=== PATIENT | male | born 1965 | race Hispanic/Latino ===

== ENCOUNTER 2017-06-06 12:49 | Inpatient (IN) | payer OTHER ==
[2017-06-06] MEDS ORDERED: MAGNESIUM SULFATE 2GM/50ML 2 GM/50 ML BAG IV ONE (13:17)
[2017-06-06] MEDS ORDERED: PROVENTIL IH ONE (13:18)
[2017-06-06] MEDS ORDERED: ATROVENT IH ONE (13:18)
--- NOTE | 2017-06-06 13:22 | Emergency Department Report ---
HPI - General Chief Complaint: Chest Pain Time Seen by Provider: 06/06/17 13:11 - HPI HPI: This is a 51-year-old male presents to the emergency department from home with the complaint of a 3 day history of some generalized chest his comfort and shortness of breath, wheezing and dry cough. Patient says "I think it's my COPD or some kind of pneumonia." He is not oxygen independent. He is a tobacco smoker as well as occasional marijuana use. He drinks about 6 beers per week. He has not taken anything or try to anything for his symptoms prior to presentation. No recent travel or sick contacts at home. He denies any fever, nausea, vomiting, back pain, edema or diaphoresis. He does not have a primary care physician. ED Past Medical Hx - Past Medical History Hx COPD: Yes Additional medical history: pneumonia - Surgical History Additional Surgical History: Neck - Social History Smoking Status: Current Every Day Smoker Substance Use Type: Alcohol, Marijuana - Medications Home Medications: Home Medications Medication Instructions Recorded Confirmed Last Taken Type No Known Home Medications [No 11/01/15 06/06/17 Unknown History Reported Home Medications] ED Review of Systems ROS: Stated complaint: CHEST PAIN/SOB Other details as noted in HPI Comment: All other systems reviewed and negative Constitutional: no symptoms reported Eyes: denies: eye pain, eye discharge, vision change ENT: denies: ear pain, throat pain Respiratory: cough, shortness of breath, wheezing Cardiovascular: chest pain. denies: edema Gastrointestinal: denies: abdominal pain, nausea, diarrhea Genitourinary: denies: urgency, dysuria Musculoskeletal: denies: back pain, joint swelling, arthralgia Skin: denies: rash, lesions Neurological: denies: headache, weakness, paresthesias Physical Exam - Physical Exam Vital Signs: Vital Signs 06/06/17 12:56 Temperature 97.9 F Pulse Rate 99 H Respiratory 22 Rate Blood Pressure 124/90 O2 Sat by Pulse 90 Oximetry Physical Exam: GENERAL: The patient is well-developed well-nourished. HENT: Normocephalic. Atraumatic. Patient has moist mucous membranes. EYES: Extraocular motions are intact. Pupils equal reactive to light bilaterally. NECK: Supple. Trachea is midline. CHEST/LUNGS: Mild wheezing throughout the chest. Tachypnea and accessory muscle use. There is a dry cough heard during examination. There is no respiratory distress noted. HEART/CARDIOVASCULAR: Regular. There is no tachycardia. There is no gallop rub or murmur. ABDOMEN: Abdomen is soft, nontender. Patient has normal bowel sounds. There is no abdominal distention. SKIN: Skin is warm and dry. No appreciable edema. NEURO: The patient is awake, alert, and oriented. The patient is cooperative. The patient has no focal neurologic deficits. The patient has normal speech. MUSCULOSKELETAL: There is no tenderness or deformity. There is no limitation range of motion. There is no evidence of acute injury. ED Course Vital Signs 06/06/17 12:56 Temperature 97.9 F Pulse Rate 99 H Respiratory 22 Rate Blood Pressure 124/90 O2 Sat by Pulse 90 Oximetry - ABG Interpretation Ph: 7.411 PCO2: 50 PO2: 60 Bicarbonate: 31 Interpretation: respiratory acidosis, metabolic alkalosis ED Medical Decision Making - Lab Data Result diagrams: 06/06/17 13:18 06/06/17 13:18 - EKG Data -: EKG Interpreted by Me EKG shows normal: sinus rhythm, axis, intervals, QRS complexes, ST-T waves Rate: tachycardia (104) - EKG Data When compared to previous EKG there are: previous EKG unavailable Interpretation: normal EKG (with tachycardia) - Radiology Data Radiology results: report reviewed, image reviewed interpreted by me: Chest x-ray shows some hyperinflation of the lungs and flattening of the diaphragm consistent with COPD/emphysema. No obvious pneumonia. CTA CHEST INDICATION: Shortness of breath, elevated d-dimer. COMPARISON: None similar. FINDINGS: Chest CTA performed following intravenous administration of 100 cc of Omnipaque 350. Rotational MIP's also obtained. Normal heart size. No effusions, aortic aneurysm or dissection. No suspicious pulmonary arterial filling defects. Patent central airway. Mild lymphadenopathy noted as follows: 1. Approximately 2.2 x 1.0 cm subcarinal lymph node, axial image 122, series 2. 2. Approximately 1.5 x 1 cm left hilar lymphadenopathy, axial image 155. 3. Approximately 1 x 0.8 cm right hilar lymphadenopathy, axial image 142. 4. Approximately 1.7 x 0.8 cm vascular space lymph node, axial image 105. No size significant axillary adenopathy. Normal thyroid. Mild emphysematous changes noted in the upper lobes with bullae/cavities becoming somewhat thickwalled as heading inferiorly as measuring approximately 1 cm on the left, axial image 98, series 2. Approximately 1 cm left upper lobe nodule anteriorly, axial image 69, series 2 demonstrates intrinsic calcification. Mid to lower lung zones bilaterally however demonstrate mild peribronchial thickening. Fine nodular infiltrates also identified as somewhat clustered peribronchial in the superior segment of the left lower lobe measuring approximately 2 cm, axial image 128, series 2. Similar multifocal patchy involvement also noted in both lower lobes and greatest consolidation noted in the right middle lobe and the lingula as on axial image 202, series 2 as well. Nonspecific distal esophageal wall prominence/thickening, not excluded for gastroesophageal reflux and/or hiatal hernia, amongst others. No significant abnormality in the imaged upper abdomen. No focal aggressive osseous lesions. CONCLUSION: 1. No CT evidence of pulmonary embolism. 2. Mild peribronchial thickening/bronchitis and multifocal fine nodular interstitial infiltrates with few scattered areas of consolidation and cavitation, as described. Infectious/inflammatory etiologies may be considered in this setting with some mediastinal lymphadenopathy possibly reactive. Tuberculosis would also remain to be excluded. 3. Few other findings, including underlying COPD and left upper lobe partly calcified granuloma. - Medical Decision Making 51-year-old male presents with some shortness of breath, chest discomfort, wheezing. He has a history of COPD and still is a tobacco smoker. ABG shows some hypoxemia, hypercapnia. Chest x-ray showed what appears to be consistent with COPD/emphysema. He had a elevated and equivocal d-dimer so CT angiography was done that showed some signs of emphysema, some nodular infiltrates, lymphadenopathy and some bulla versus cavitation. Patient appears lower likelihood for tuberculosis but was placed in isolation. He was given breathing treatments, steroids, magnesium. Blood cultures were sent and he was started on antibiotics. He will be admitted to the hospital for further evaluation and treatment has been accepted for admission by the hospitalist, Dr. Tirado. - Differential Diagnosis pneumonia, COPD, emphysema, TB Critical Care Time: No Critical care attestation.: If time is entered above; I have spent that time in minutes in the direct care of this critically ill patient, excluding procedure time. ED Disposition Clinical Impression: COPD exacerbation, Abnormal CT scan, lung, Hypercapnia Dyspnea Qualifiers: Dyspnea type: shortness of breath Qualified Code(s): R06.02 - Shortness of breath; R06.00 - Dyspnea, unspecified; R06.01 - Orthopnea Pneumonia Qualifiers: Pneumonia type: due to unspecified organism Laterality: unspecified laterality Lung location: unspecified part of lung Qualified Code(s): J18.9 - Pneumonia, unspecified organism Chest pain Qualifiers: Chest pain type: unspecified Qualified Code(s): R07.9 - Chest pain, unspecified Disposition: OP ADMIT IP TO THIS HOSP Is pt being admited?: Yes Condition: Stable Instructions: Chronic Obstructive Pulmonary Disease (ED), Bacterial Pneumonia ( ED), Chest Pain (ED) Referrals: PRIMARY CARE, [Primary Care Provider] - 3-5 Days Time of Disposition: 17:36
[2017-06-06 13:32] LABS: Basophils % (Auto) 0.3 % (0.0-1.8); Eosinophils % (Auto) 0.1 % (0.0-4.3); Hematocrit 44.3 % (35.5-45.6); Hemoglobin 15.1 gm/dl (11.8-15.2); Mean Corpuscular HGB Conc 34 % (32-34); Mean Corpuscular Hemoglobin 31 pg (28-32); Mean Corpuscular Volume 92 fl (84-94); Platelet Count 274 K/mm3 (140-440); Red Blood Count 4.84 M/mm3 (3.65-5.03); Red Cell Distribution Width 13.3 % (13.2-15.2); White Blood Count 17.9 K/mm3 (4.5-11.0)
[2017-06-06 13:47] LABS: Anion Gap 18 mmol/L; BUN/Creatinine Ratio 13; Blood Urea Nitrogen 8 mg/dL (9-20); Calcium 9.3 mg/dL (8.4-10.2); Carbon Dioxide 34 mmol/L (22-30); Chloride 84.7 mmol/L (98-107); Glucose 112 mg/dL (75-100); Potassium 4.3 mmol/L (3.6-5.0); Sodium 132 mmol/L (137-145)
--- NOTE | 2017-06-06 13:51 | XRay Report ---
PORTABLE CHEST INDICATION: Chest pain, shortness of breath. COMPARISON: 08/16/2014 FINDINGS: Portable, frontal chest radiograph demonstrates stable cardiomediastinal silhouette, including hilar/perihilar appearance. Pulmonary arterial hypertension not excluded. Hyperexpanded lungs with lung markings centrally and toward the bases now more prominent/mild bibasilar fibrosis. No pleural effusions or CHF. EKG leads. Demineralized bones with multiple old healed right rib fractures and also possible bilateral distal clavicular old deformities. CONCLUSION: No definite acute chest process in this patient with possible interval progression of chronic lung disease/COPD and various other findings, as described. Please correlate. Thank you for the opportunity to participate in this patient's care.
[2017-06-06 15:10] LABS: ABG Base Excess 5.5 mmol/L (-2.0-3.0); ABG HCO3 31.4 mmol/L (20.0-26.0); ABG Oxygen Saturation 91.5 % (95.0-99.0); ABG PCO2 50.5 mm Hg; ABG PH 7.411 pH Units (7.350-7.450); ABG PO2 59.8 mm Hg (80.0-90.0)
[2017-06-06] MEDS ORDERED: NACL ONE (15:14)
[2017-06-06] MEDS ORDERED: ROCEPHIN/NS 1 GM/50 ML 1 GM/50 ML BAG IV ONE (16:37)
--- NOTE | 2017-06-06 16:44 | Cat Scan Report ---
CTA CHEST INDICATION: Shortness of breath, elevated d-dimer. COMPARISON: None similar. FINDINGS: Chest CTA performed following intravenous administration of 100 cc of Omnipaque 350. Rotational MIP's also obtained. Normal heart size. No effusions, aortic aneurysm or dissection. No suspicious pulmonary arterial filling defects. Patent central airway. Mild lymphadenopathy noted as follows: 1. Approximately 2.2 x 1.0 cm subcarinal lymph node, axial image 122, series 2. 2. Approximately 1.5 x 1 cm left hilar lymphadenopathy, axial image 155. 3. Approximately 1 x 0.8 cm right hilar lymphadenopathy, axial image 142. 4. Approximately 1.7 x 0.8 cm vascular space lymph node, axial image 105. No size significant axillary adenopathy. Normal thyroid. Mild emphysematous changes noted in the upper lobes with bullae/cavities becoming somewhat thickwalled as heading inferiorly as measuring approximately 1 cm on the left, axial image 98, series 2. Approximately 1 cm left upper lobe nodule anteriorly, axial image 69, series 2 demonstrates intrinsic calcification. Mid to lower lung zones bilaterally however demonstrate mild peribronchial thickening. Fine nodular infiltrates also identified as somewhat clustered peribronchial in the superior segment of the left lower lobe measuring approximately 2 cm, axial image 128, series 2. Similar multifocal patchy involvement also noted in both lower lobes and greatest consolidation noted in the right middle lobe and the lingula as on axial image 202, series 2 as well. Nonspecific distal esophageal wall prominence/thickening, not excluded for gastroesophageal reflux and/or hiatal hernia, amongst others. No significant abnormality in the imaged upper abdomen. No focal aggressive osseous lesions. CONCLUSION: 1. No CT evidence of pulmonary embolism. 2. Mild peribronchial thickening/bronchitis and multifocal fine nodular interstitial infiltrates with few scattered areas of consolidation and cavitation, as described. Infectious/inflammatory etiologies may be considered in this setting with some mediastinal lymphadenopathy possibly reactive. Tuberculosis would also remain to be excluded. 3. Few other findings, including underlying COPD and left upper lobe partly calcified granuloma. I phoned the above results to Dr. Goodwin in the ER, 4:30 PM, 06/06/2017. Thank you for the opportunity to participate in this patient's care.
--- NOTE | 2017-06-06 16:45 | History and Physical Report ---
History of Present Illness Date of examination: 06/06/17 (Notified at [id number]) Chief complaint: I keep coughing and my chest is hurting History of present illness: 51 YO Male with COPD, Nicotine Dependence, Malnutrition presents to ED for evaluation. Pt states that he has experienced persistent dry, nonproductive coughing and shortness of breath over the past three days with persistent symptoms the entire time. Upon further questioning, patient acknowledges that his chest is sore and that his soreness began after 1 day of coughing, and has worsened since that time. Pain soreness involved his entire chest and is worsened with coughing, and relieved when he is not coughing. Pt denies taking any medication for relief of his coughing. Pt denies fever, chills, Palpitations ,NVD, back pain, hemoptysis. Pt acknowledges unintentional weight loss but is unsure of how much, and has occasional night sweats. Pt denies any known exposure to TB. Past History Past Medical History: COPD, other (Nicotine Dependence, Malnutrition) Medications and Allergies Allergies Allergy/AdvReac Type Severity Reaction Status Date / Time No Known Allergies Allergy Unverified 11/01/15 05:47 Home Medications Medication Instructions Recorded Confirmed Last Taken Type No Known Home Medications [No 11/01/15 06/06/17 Unknown History Reported Home Medications] Active Meds: Active Medications Azithromycin 500 mg/ Sodium (Chloride) 250 mls @ 250 mls/hr IV ONCE.ED ONE Stop: 06/06/17 18:37 Ceftriaxone Sodium (Rocephin/Ns 1 Gm/50 Ml) 1 gm in 50 mls @ 100 mls/hr IV ONCE ONE Stop: 06/06/17 17:06 Review of Systems Constitutional: weight loss, night sweats, anorexia, no weight gain, no fever, no chills Ears, nose, mouth and throat: no tinnitis, no decreased hearing, no nose pain, no nasal congestion, no nasal discharge, no sinus pressure, no sinus pain Cardiovascular: no chest pain, no orthopnea, no palpitations, no rapid/ irregular heart beat, no edema, no syncope, no lightheadedness Respiratory: cough, shortness of breath, pleurisy, no cough with sputum, no excessive sputum, no hemoptysis, no dyspnea on exertion, no pain on inspiration Gastrointestinal: no abdominal pain, no nausea, no vomiting, no diarrhea, no constipation, no change in bowel habits Genitourinary Male: no hematuria, no flank pain, no discharge, no urinary frequency, no urinary hesitancy, no nocturia Rectal: no pain, no incontinence, no bleeding Musculoskeletal: no neck stiffness, no neck pain, no shooting arm pain, no arm numbness/tingling, no low back pain, no shooting leg pain Integumentary: no rash, no pruritis, no redness, no sores, no wounds, no jaundice Neurological: no head injury, no transient paralysis, no paralysis, no weakness , no parathesias, no numbness Psychiatric: no anxiety, no memory loss, no change in sleep habits, no sleep disturbances, no insomnia, no hypersomnia, no change in appetite Endocrine: no cold intolerance, no heat intolerance, no polyphagia, no excessive thirst, no polydipsia, no polyuria, no nocturia Hematologic/Lymphatic: no easy bruising, no easy bleeding Allergic/Immunologic: no urticaria, no allergic rhinitis, no wheezing Exam - Constitutional Vitals: Temp Pulse Resp BP Pulse Ox 97.9 F 99 H 32 H 137/97 96 06/06/17 12:56 06/06/17 13:30 06/06/17 13:30 06/06/17 13:30 06/06/17 13:30 General appearance: Present: mild distress - EENT Eyes: Present: PERRL ENT: hearing intact, clear oral mucosa - Neck Neck: Present: supple, normal ROM - Respiratory Respiratory effort: labored, other (tachypnea) Respiratory: bilateral: diminished, wheezing - Cardiovascular Heart Sounds: Present: S1 & S2. Absent: rub, click - Extremities Extremities: pulses symmetrical, No edema Peripheral Pulses: within normal limits - Abdominal General gastrointestinal: Present: soft, non-tender, non-distended, normal bowel sounds Male genitourinary: Present: normal - Integumentary Integumentary: Present: clear, warm, dry - Musculoskeletal Musculoskeletal: gait normal, strength equal bilaterally - Psychiatric Psychiatric: appropriate mood/affect, intact judgment & insight - Neurologic Neurologic: CNII-XII intact, moves all extremities Results - Labs CBC & Chem 7: 06/06/17 13:18 06/06/17 13:18 Labs: Abnormal lab results 06/06/17 06/06/17 06/06/17 Range/Units 13:18 13:18 13:18 WBC 17.9 H (4.5-11.0) K/mm3 Lymph % (Auto) 8.4 L (13.4-35.0) % [place] % (Auto) 7.7 H (0.0-7.3) % [place] # 1.4 H (0.0-0.8) K/mm3 Seg Neutrophils % 83.5 H (40.0-70.0) % Seg Neutrophils # 14.9 H (1.8-7.7) K/mm3 D-Dimer 357.39 H (0-234) ng/mlDDU ABG pO2 (80.0-90.0) mm Hg ABG HCO3 (20.0-26.0) mmol/L ABG O2 Saturation (95.0-99.0) % ABG Base Excess (-2.0-3.0) mmol/L Oxyhemoglobin (95.0-99.0) % Sodium 132 L (137-145) mmol/L Chloride 84.7 L (98-107) mmol/L Carbon Dioxide 34 H (22-30) mmol/L BUN 8 L (9-20) mg/dL Creatinine 0.6 L (0.8-1.5) mg/dL Glucose 112 H (75-100) mg/dL NT-Pro-B Natriuret Pep (0-900) pg/mL 06/06/17 06/06/17 Range/Units 13:18 15:07 WBC (4.5-11.0) K/mm3 Lymph % (Auto) (13.4-35.0) % [place] % (Auto) (0.0-7.3) % [place] # (0.0-0.8) K/mm3 Seg Neutrophils % (40.0-70.0) % Seg Neutrophils # (1.8-7.7) K/mm3 D-Dimer (0-234) ng/mlDDU ABG pO2 59.8 L (80.0-90.0) mm Hg ABG HCO3 31.4 H (20.0-26.0) mmol/L ABG O2 Saturation 91.5 L (95.0-99.0) % ABG Base Excess 5.5 H (-2.0-3.0) mmol/L Oxyhemoglobin 88.7 L (95.0-99.0) % Sodium (137-145) mmol/L Chloride (98-107) mmol/L Carbon Dioxide (22-30) mmol/L BUN (9-20) mg/dL Creatinine (0.8-1.5) mg/dL Glucose (75-100) mg/dL NT-Pro-B Natriuret Pep 1005 H (0-900) pg/mL Assessment and Plan - Patient Problems (1) Sepsis Current Visit: Yes Status: Acute Qualifiers: Sepsis type: sepsis due to unspecified organism Qualified Code(s): A41.9 - Sepsis, unspecified organism Plan to address problem: IV abx, IVF, monitor uop q shift, serial lactic acid, blood cultures, supportive care, sputum cultures, CXR, (2) Observation for suspected tuberculosis (TB) Current Visit: Yes Status: Acute Plan to address problem: Pulmonary consulted, AFT x3, Respiratory isolation, negative pressure room, PPD placement, (3) COPD (chronic obstructive pulmonary disease) Current Visit: Yes Status: Acute Qualifiers: COPD type: C Chronic bronchitis type: C Emphysema type: E Plan to address problem: supplemental oxygen, nebs, aspiration precautions, Hold steroids at this time due to suspected TB, (4) Nicotine dependence Current Visit: Yes Status: Acute Qualifiers: Nicotine product type: N Substance use status: S Plan to address problem: Pt counseled, supportive care, no quit date at this time (5) DVT prophylaxis Current Visit: Yes Status: Acute
[2017-06-06] MEDS ORDERED: TYLENOL PO PRN (16:46)
[2017-06-06] MEDS ORDERED: NACL 0.9% 1000 ML IV ONE (16:46)
[2017-06-06] MEDS ORDERED: PROVENTIL IH PRN (16:46)
[2017-06-06] MEDS ORDERED: VANCOMYCIN VIAL IV ONE (16:46)
[2017-06-06] MEDS ORDERED: VANCOMYCIN PHARMACY TO DOSE IV SCH (17:00)
[2017-06-06] MEDS ORDERED: ZITHROMAX 500 MG in NACL 0.9% 250ML 250 ML IV ONE (17:38)
[2017-06-06] MEDS ORDERED: VANCOMYCIN 1,250 MG in NACL 0.9% 250ML 250 ML IV ONE (17:45)
[2017-06-06 19:15] LABS: Bilirubin,Urine NEG (Negative); Blood,Urine NEG (Negative); Ketones,Urine TR mg/dL (Negative); Leukocyte Esterase,Urine NEG (Negative); Mucus,Urine FEW /HPF; Nitrite,Urine NEG (Negative); Protein,Urine <15 mg/dL mg/dL (Negative); Urobilinogen,Urine < 2.0 mg/dL (<2.0); WBC,Urine < 1.0 /HPF (0.0-6.0)
[2017-06-06] MEDS: ZOSYN/NS 4.5GM/100ML 4.5 GM/100 ML VIAL IV SCH (23:53)
[2017-06-07] MEDS: ZOSYN/NS 4.5GM/100ML 4.5 GM/100 ML VIAL IV SCH ×3 (06:12→23:03)
[2017-06-07] MEDS: VANCOMYCIN/NS 1 GM/250 ML 1 GM/250 ML BAG IV SCH (13:31)
[2017-06-07] MEDS ORDERED: APLISOL ID ONE (14:00)
--- NOTE | 2017-06-07 17:15 | Progress Note ---
Assessment and Plan Assessment and plan: 51 YO Male with COPD, Nicotine Dependence, Malnutrition presents to ED for evaluation. Pt states that he has experienced persistent dry, nonproductive coughing and shortness of breath over the past three days with persistent symptoms the entire time. Upon further questioning, patient acknowledges that his chest is sore and that his soreness began after 1 day of coughing, and has worsened since that time. Pain soreness involved his entire chest and is worsened with coughing, and relieved when he is not coughing. Pt denies taking any medication for relief of his coughing. Pt denies fever, chills, Palpitations ,NVD, back pain, hemoptysis. Pt acknowledges unintentional weight loss but is unsure of how much, and has occasional night sweats. Pt denies any known exposure to TB. Sepsis Lactic acidosis Cavitory Pneumonia Rule Out TB COPD exacerbation Acute on chronic respiratory disease Nicotien dependance Plan Admitted with Tachycardia, Tachypenia, shortness of breath Continue supportive care, IV abx, oxygen. Note patient is not on home oxygen Continue Isolation, although I doubt TB but have been surprised in the past Check quantiferon gold, [employer], ID consult and discussed with them Nebs, Steroids Encouraged to Quit tobacco Cultures reviewed and negative PPD DVT/GI prophy Plan of care discussed with patient in detail History Interval history: Patient seen and examined today in moderate respiratory distress. He denies any chest pain nausea or vomiting. Reports improvement of the fever. No adverse event reported by nursing staff. Hospitalist Physical - Physical exam Narrative exam: VITAL SIGNS: Reviewed. GENERAL: The patient appeared well nourished and barrel chested. Vital signs as documented. HEAD: No signs of head trauma. EYES: Pupils are equal. Extraocular motions intact. EARS: Hearing grossly intact. MOUTH: Oropharynx is normal. NECK: No adenopathy, no JVD. CHEST: Chest with admittedly diminished breath sounds with mild crackles of the right lower lobe. Wob increased. CARDIAC: Regular rate and rhythm. S1 and S2, without murmurs, gallops, or rubs. VASCULAR: No Edema. Peripheral pulses normal and equal in all extremities. ABDOMEN: Soft, without detectable tenderness. No sign of distention. No rebound or guarding, and no masses palpated. Bowel Sounds normal. MUSCULOSKELETAL: Good range of motion of all major joints. Extremities without clubbing, cyanosis or edema. NEUROLOGIC EXAM: Alert and oriented x 3. No focal sensory or strength deficits. Speech normal. Follows commands. PSYCHIATRIC: Mood normal. SKIN: No rash or lesions. - Constitutional Vitals: Temp Pulse Resp BP Pulse Ox 98.0 F 76 24 116/72 92 06/07/17 15:15 06/07/17 15:15 06/07/17 15:15 06/07/17 15:15 06/07/17 15:15 General appearance: Present: mild distress Results - Labs CBC & Chem 7: 06/06/17 13:18 06/06/17 13:18 Labs: Laboratory Last Values WBC 17.9 K/mm3 (4.5-11.0) H 06/06/17 13:18 RBC 4.84 M/mm3 (3.65-5.03) 06/06/17 13:18 Hgb 15.1 gm/dl (11.8-15.2) 06/06/17 13:18 Hct 44.3 % (35.5-45.6) 06/06/17 13:18 MCV 92 fl (84-94) 06/06/17 13:18 MCH 31 pg (28-32) 06/06/17 13:18 MCHC 34 % (32-34) 06/06/17 13:18 RDW 13.3 % (13.2-15.2) 06/06/17 13:18 Plt Count 274 K/mm3 (140-440) 06/06/17 13:18 Lymph % (Auto) 8.4 % (13.4-35.0) L 06/06/17 13:18 [place] % (Auto) 7.7 % (0.0-7.3) H 06/06/17 13:18 Eos % (Auto) 0.1 % (0.0-4.3) 06/06/17 13:18 Baso % (Auto) 0.3 % (0.0-1.8) 06/06/17 13:18 Lymph # 1.5 K/mm3 (1.2-5.4) 06/06/17 13:18 [place] # 1.4 K/mm3 (0.0-0.8) H 06/06/17 13:18 Eos # 0.0 K/mm3 (0.0-0.4) 06/06/17 13:18 Baso # 0.1 K/mm3 (0.0-0.1) 06/06/17 13:18 Seg Neutrophils % 83.5 % (40.0-70.0) H 06/06/17 13:18 Seg Neutrophils # 14.9 K/mm3 (1.8-7.7) H 06/06/17 13:18 D-Dimer 357.39 ng/mlDDU (0-234) H 06/06/17 13:18 ABG pH 7.411 pH Units (7.350-7.450) 06/06/17 15:07 ABG pCO2 50.5 mm Hg 06/06/17 15:07 ABG pO2 59.8 mm Hg (80.0-90.0) L 06/06/17 15:07 ABG HCO3 31.4 mmol/L (20.0-26.0) H 06/06/17 15:07 ABG O2 Saturation 91.5 % (95.0-99.0) L 06/06/17 15:07 ABG O2 Content 18.3 (0.0-44) 06/06/17 15:07 ABG Base Excess 5.5 mmol/L (-2.0-3.0) H 06/06/17 15:07 ABG Hemoglobin 14.7 gm/dl (14.0-18.0) 06/06/17 15:07 ABG Carboxyhemoglobin 2.5 % (0.0-5.0) 06/06/17 15:07 ABG Methemoglobin 0.6 % (0.0-1.5) 06/06/17 15:07 Oxyhemoglobin 88.7 % (95.0-99.0) L 06/06/17 15:07 FiO2 21 % 06/06/17 15:07 Sodium 132 mmol/L (137-145) L 06/06/17 13:18 Potassium 4.3 mmol/L (3.6-5.0) 06/06/17 13:18 Chloride 84.7 mmol/L (98-107) L 06/06/17 13:18 Carbon Dioxide 34 mmol/L (22-30) H 06/06/17 13:18 Anion Gap 18 mmol/L 06/06/17 13:18 BUN 8 mg/dL (9-20) L 06/06/17 13:18 Creatinine 0.6 mg/dL (0.8-1.5) L 06/06/17 13:18 Estimated GFR > 60 ml/min 06/06/17 13:18 BUN/Creatinine Ratio 13 % 06/06/17 13:18 Glucose 112 mg/dL (75-100) H 06/06/17 13:18 Lactic Acid 3.30 mmol/L (0.7-2.0) H* 06/06/17 23:04 Calcium 9.3 mg/dL (8.4-10.2) 06/06/17 13:18 Troponin T < 0.010 ng/mL (0.00-0.029) 06/06/17 19:51 NT-Pro-B Natriuret Pep 1005 pg/mL (0-900) H 06/06/17 13:18 Urine Color Yellow (Yellow) 06/06/17 18:34 Urine Turbidity Clear (Clear) 06/06/17 18:34 Urine pH 6.0 (5.0-7.0) 06/06/17 18:34 Ur Specific [place] > 1.059 (1.003-1.030) H 06/06/17 18:34 Urine Protein <15 mg/dl mg/dL (Negative) 06/06/17 18:34 Urine Glucose (UA) Neg mg/dL (Negative) 06/06/17 18:34 Urine Ketones Tr mg/dL (Negative) 06/06/17 18:34 Urine Blood Neg (Negative) 06/06/17 18:34 Urine Nitrite Neg (Negative) 06/06/17 18:34 Urine Bilirubin Neg (Negative) 06/06/17 18:34 Urine Urobilinogen < 2.0 mg/dL (<2.0) 06/06/17 18:34 Ur Leukocyte Esterase Neg (Negative) 06/06/17 18:34 Urine WBC (Auto) < 1.0 /HPF (0.0-6.0) 06/06/17 18:34 Urine RBC (Auto) 1.0 /HPF (0.0-6.0) 06/06/17 18:34 Urine Mucus Few /HPF 06/06/17 18:34 - Imaging and Cardiology Chest x-ray: image reviewed (COPD)
[2017-06-08] MEDS: VANCOMYCIN/NS 1 GM/250 ML 1 GM/250 ML BAG IV SCH (01:34)
[2017-06-08] MEDS: ZOSYN/NS 4.5GM/100ML 4.5 GM/100 ML VIAL IV SCH ×3 (07:32→21:58)
[2017-06-08 07:53] LABS: Hematocrit 40.4 % (35.5-45.6); Hemoglobin 13.7 gm/dl (11.8-15.2); Mean Corpuscular HGB Conc 34 % (32-34); Mean Corpuscular Hemoglobin 31 pg (28-32); Mean Corpuscular Volume 92 fl (84-94); Platelet Count 325 K/mm3 (140-440); Red Blood Count 4.38 M/mm3 (3.65-5.03); Red Cell Distribution Width 13.4 % (13.2-15.2); White Blood Count 10.6 K/mm3 (4.5-11.0)
[2017-06-08 08:10] LABS: Anion Gap 13 mmol/L; BUN/Creatinine Ratio 18; Blood Urea Nitrogen 9 mg/dL (9-20); Calcium 9.1 mg/dL (8.4-10.2); Carbon Dioxide 36 mmol/L (22-30); Chloride 96.7 mmol/L (98-107); Glucose 77 mg/dL (75-100); Potassium 4.2 mmol/L (3.6-5.0); Sodium 141 mmol/L (137-145)
--- NOTE | 2017-06-08 10:17 | Progress Note ---
Assessment and Plan Assessment and plan: 51 YO Male with COPD, Nicotine Dependence, Malnutrition presents to ED for evaluation. Pt states that he has experienced persistent dry, nonproductive coughing and shortness of breath over the past three days with persistent symptoms the entire time. Upon further questioning, patient acknowledges that his chest is sore and that his soreness began after 1 day of coughing, and has worsened since that time. Pain soreness involved his entire chest and is worsened with coughing, and relieved when he is not coughing. Pt denies taking any medication for relief of his coughing. Pt denies fever, chills, Palpitations ,NVD, back pain, hemoptysis. Pt acknowledges unintentional weight loss but is unsure of how much, and has occasional night sweats. Pt denies any known exposure to TB. Sepsis Lactic acidosis Cavitory Pneumonia Rule Out TB COPD exacerbation Acute on chronic respiratory disease WITH HYPOXIA ON ABG Nicotine dependance Elevated D.dimer Hyponatremia-Resolved Plan Admitted with Tachycardia, Tachypenia, shortness of breath Continue supportive care, IV abx, oxygen. Note patient is not on home oxygen Continue Isolation, although I doubt TB but have been surprised in the past Await quantiferon gold, AFB, Follow work up per ID and Pulmonary. Will need close pulmonary follow up Echo 50-55%. CTA negative for PE ID consult and discussed with them Nebs, Steroids Encouraged to Quit tobacco Cultures reviewed and negative PPD DVT/GI prophy Plan of care discussed with patient in detail History Interval history: Patient seen and examined today in MILD respiratory distress. He denies any chest pain nausea or vomiting. No adverse event reported by nursing staff. Hospitalist Physical - Physical exam Narrative exam: VITAL SIGNS: Reviewed. GENERAL: The patient appeared well nourished and barrel chested. Vital signs as documented. HEAD: No signs of head trauma. EYES: Pupils are equal. Extraocular motions intact. EARS: Hearing grossly intact. MOUTH: Oropharynx is normal. NECK: No adenopathy, no JVD. CHEST: Chest with admittedly diminished breath sounds with mild crackles of the right lower lobe. Wob increased. CARDIAC: Regular rate and rhythm. S1 and S2, without murmurs, gallops, or rubs. VASCULAR: No Edema. Peripheral pulses normal and equal in all extremities. ABDOMEN: Soft, without detectable tenderness. No sign of distention. No rebound or guarding, and no masses palpated. Bowel Sounds normal. MUSCULOSKELETAL: Good range of motion of all major joints. Extremities without clubbing, cyanosis or edema. NEUROLOGIC EXAM: Alert and oriented x 3. No focal sensory or strength deficits. Speech normal. Follows commands. PSYCHIATRIC: Mood normal. SKIN: No rash or lesions. - Constitutional Vitals: Temp Pulse Resp BP Pulse Ox 97.4 F L 88 24 149/102 96 06/08/17 07:56 06/08/17 07:56 06/08/17 07:56 06/08/17 07:56 06/08/17 07:56 General appearance: Present: mild distress Results - Labs CBC & Chem 7: 06/08/17 07:33 06/08/17 07:33 Labs: Laboratory Last Values WBC 10.6 K/mm3 (4.5-11.0) 06/08/17 07:33 RBC 4.38 M/mm3 (3.65-5.03) 06/08/17 07:33 Hgb 13.7 gm/dl (11.8-15.2) 06/08/17 07:33 Hct 40.4 % (35.5-45.6) 06/08/17 07:33 MCV 92 fl (84-94) 06/08/17 07:33 MCH 31 pg (28-32) 06/08/17 07:33 MCHC 34 % (32-34) 06/08/17 07:33 RDW 13.4 % (13.2-15.2) 06/08/17 07:33 Plt Count 325 K/mm3 (140-440) 06/08/17 07:33 Lymph % (Auto) 8.4 % (13.4-35.0) L 06/06/17 13:18 Major % (Auto) 7.7 % (0.0-7.3) H 06/06/17 13:18 Eos % (Auto) 0.1 % (0.0-4.3) 06/06/17 13:18 Baso % (Auto) 0.3 % (0.0-1.8) 06/06/17 13:18 Lymph # 1.5 K/mm3 (1.2-5.4) 06/06/17 13:18 Major # 1.4 K/mm3 (0.0-0.8) H 06/06/17 13:18 Eos # 0.0 K/mm3 (0.0-0.4) 06/06/17 13:18 Baso # 0.1 K/mm3 (0.0-0.1) 06/06/17 13:18 Seg Neutrophils % 83.5 % (40.0-70.0) H 06/06/17 13:18 Seg Neutrophils # 14.9 K/mm3 (1.8-7.7) H 06/06/17 13:18 D-Dimer 357.39 ng/mlDDU (0-234) H 06/06/17 13:18 ABG pH 7.411 pH Units (7.350-7.450) 06/06/17 15:07 ABG pCO2 50.5 mm Hg 06/06/17 15:07 ABG pO2 59.8 mm Hg (80.0-90.0) L 06/06/17 15:07 ABG HCO3 31.4 mmol/L (20.0-26.0) H 06/06/17 15:07 ABG O2 Saturation 91.5 % (95.0-99.0) L 06/06/17 15:07 ABG O2 Content 18.3 (0.0-44) 06/06/17 15:07 ABG Base Excess 5.5 mmol/L (-2.0-3.0) H 06/06/17 15:07 ABG Hemoglobin 14.7 gm/dl (14.0-18.0) 06/06/17 15:07 ABG Carboxyhemoglobin 2.5 % (0.0-5.0) 06/06/17 15:07 ABG Methemoglobin 0.6 % (0.0-1.5) 06/06/17 15:07 Oxyhemoglobin 88.7 % (95.0-99.0) L 06/06/17 15:07 FiO2 21 % 06/06/17 15:07 Sodium 141 mmol/L (137-145) D 06/08/17 07:33 Potassium 4.3 mmol/L (3.6-5.0) 06/06/17 13:18 Chloride 84.7 mmol/L (98-107) L 06/06/17 13:18 Carbon Dioxide 36 mmol/L (22-30) H 06/08/17 07:33 Anion Gap 18 mmol/L 06/06/17 13:18 BUN 9 mg/dL (9-20) 06/08/17 07:33 Creatinine 0.5 mg/dL (0.8-1.5) L 06/08/17 07:33 Estimated GFR > 60 ml/min 06/08/17 07:33 BUN/Creatinine Ratio 18 % 06/08/17 07:33 Glucose 77 mg/dL (75-100) 06/08/17 07:33 Lactic Acid 3.30 mmol/L (0.7-2.0) H* 06/06/17 23:04 Calcium 9.1 mg/dL (8.4-10.2) 06/08/17 07:33 Troponin T < 0.010 ng/mL (0.00-0.029) 06/06/17 19:51 NT-Pro-B Natriuret Pep 1005 pg/mL (0-900) H 06/06/17 13:18 Urine Color Yellow (Yellow) 06/06/17 18:34 Urine Turbidity Clear (Clear) 06/06/17 18:34 Urine pH 6.0 (5.0-7.0) 06/06/17 18:34 Ur Specific [place] > 1.059 (1.003-1.030) H 06/06/17 18:34 Urine Protein <15 mg/dl mg/dL (Negative) 06/06/17 18:34 Urine Glucose (UA) Neg mg/dL (Negative) 06/06/17 18:34 Urine Ketones Tr mg/dL (Negative) 06/06/17 18:34 Urine Blood Neg (Negative) 06/06/17 18:34 Urine Nitrite Neg (Negative) 06/06/17 18:34 Urine Bilirubin Neg (Negative) 06/06/17 18:34 Urine Urobilinogen < 2.0 mg/dL (<2.0) 06/06/17 18:34 Ur Leukocyte Esterase Neg (Negative) 06/06/17 18:34 Urine WBC (Auto) < 1.0 /HPF (0.0-6.0) 06/06/17 18:34 Urine RBC (Auto) 1.0 /HPF (0.0-6.0) 06/06/17 18:34 Urine Mucus Few /HPF 06/06/17 18:34
--- NOTE | 2017-06-08 10:52 | Consultation ---
History of Present Illness - Reason for Consult Consult date: 06/08/17 cavitary pneumonia Requesting physician: CHASTITY MARIN - History of Present Illness 51 year old male with history of COPD, pneumonia x 2 in the past and tobacco abuse; admitted on 06/06/17 due to worsening cough has become more productive of yellowish sputum and associated with worsening SOB. Denies fever, chills, weight loss or sick contacts. He was in care home for 2 days once and was tested for PPD which he reports was negative. Last pnemonia was in 2013. Denies ever taking flu or pneumonia vaccines. Denies TB contacts. Used to work in home improvement. The emergency room, temperature was 97.9, heart rate 99, blood pressure 124/90. His initial white count was 17, Urinalysis was negative. Lactate was 2.2. Creatinine 0.6. Chest x-ray show progress progression of COPD. CT of the chest showed no pulmonary embolism, positive mild peribronchial thickening with bronchitis with multifocal fine nodular interstitial infiltrates, few scattered red areas of consolidation and cavitation. Current Antimicrobials: Zosyn 06/06 Vancomycin 06/07 Microbiology: Blood cultures: 06/06 ngtd Respiratory cultures: Past History Past Medical History: COPD, other (Nicotine Dependence, Malnutrition) Medications and Allergies Allergies Allergy/AdvReac Type Severity Reaction Status Date / Time No Known Allergies Allergy Unverified 11/01/15 05:47 Home Medications Medication Instructions Recorded Confirmed Last Taken Type No Known Home Medications [No 11/01/15 06/06/17 Unknown History Reported Home Medications] Active Meds: Active Medications Acetaminophen (Tylenol) 650 mg PO Q4H PRN PRN Reason: Pain MILD(1-3)/Fever >100.5/PATEL Albuterol (Proventil) 2.5 mg IH Q4HRT PRN PRN Reason: Shortness Of Breath Piperacillin Sod/Tazobactam Sod (Zosyn/Ns 4.5gm/100ml) 4.5 gm in 100 mls @ 200 mls/hr IV Q8HR RIMA PRN Reason: Protocol Last Admin: 06/08/17 07:32 Dose: 200 mls/hr Vancomycin HCl (Vancomycin/Ns 1 Gm/250 Ml) 1 gm in 250 mls @ 166.667 mls/hr IV Q12H COUNTS INCLUDE 234 BEDS AT THE [facility] Last Admin: 06/08/17 01:34 Dose: 166.667 mls/hr Vancomycin HCl (Vancomycin Pharmacy To Dose) 1 each IV PKCONSULT RIMA PRN Reason: Protocol Review of Systems All systems: negative (cough, SOB) Physical Examination - Physical Exam Narrative exam: General appearance: Alert in NAD, conversant Eyes: anicteric sclerae, moist conjunctivae; no lid-lag; PERRLA HENT: Atraumatic; oropharynx clear Neck: Trachea midline; supple, no thyromegaly or lymphadenopathy Lungs: +dianne wheezing CV: RRR, no murmurs Abdomen: Soft, non-tender; no masses or hepatosplenomegaly Extremities: No peripheral edema or extremity lymphadenopathy Skin: Normal temperature, turgor and texture; no rash, ulcers or subcutaneous nodules Psych: Appropriate affect, alert and oriented to person, place and time. Neuro: alert and oriented x 3. Moving all extermities Lines: No CVL / PICC - Constitutional Vitals: Vital Signs Temp Pulse Resp BP Pulse Ox 97.4 F L 88 24 149/102 96 06/08/17 07:56 06/08/17 07:56 06/08/17 07:56 06/08/17 07:56 06/08/17 07:56 Temperature -Last 24 Hours Temperature 97.4 F Temperature 97.8 F Temperature 97.8 F Temperature 98.4 F Temperature 98.0 F Temperature 98.2 F Results - Labs CBC & Chem 7: 06/08/17 07:33 06/08/17 07:33 Labs: Abnormal lab results 06/08/17 Range/Units 07:33 Carbon Dioxide 36 H (22-30) mmol/L Creatinine 0.5 L (0.8-1.5) mg/dL Assessment and Plan Assessment: 1) Sepsis: Present on admission, manifested by tachycardia, leukocytosis and increased lactate. Etiology most likely COPD exacerbation +/- cavirtary pneumonia. 2) Cavitary pneumonia: pre-testing low risk for TB -Chest x-ray shows progression of COPD. -CT of the chest showed no pulmonary embolism, positive mild peribronchial thickening with bronchitis with multifocal fine nodular interstitial infiltrates, few scattered red areas of consolidation and cavitation. 3) COPD exacerbation 4) Tobacco abuse Plan: -obtain respiratory cultures, procalcitonin, C-reactive protein (CRP) -obtain AFB sputum x 3 -airborne isolation -check quantiferon-Tb gold -check influenza antigen PCR in nasopharinx -check Legionella urine antigen, Streptococcus pneumoniae urine antigen -obtain HIV testing -continue zosyn -stop vanco Thank you Dr Marin for your consultation, will follow up with you. Evelina Ramsay MD Infectious Diseases Specialist [facility] ([facility]) M [phone] O [phone]
--- NOTE | 2017-06-08 12:04 | Consultation ---
History of Present Illness Consult date: 06/08/17 Reason for consult: COPD, abnormal CXR/CT History of present illness: Called to evaluate case of a 51-year-old male, admitted to the hospital with 3-4 day history of progressive shortness of breath, cough or wheezing. The patient has prior history of COPD, pneumonia 2 in the last 3-4 years. Presents with increasing shortness of breath, dyspnea upon exertion, cough with yellowish clear sputum. No fevers chills or hemoptysis. No night sweats. He is on albuterol. Also smokes one pack cigars per day. Past history of correction reclusion also. He denies prior treatment for TB. Called to evaluate. CT scan of the chest shows evidence of COPD, minimal tereso or changes with what brought the etiology reports as possible early cavitation. Past History Past Medical History: COPD, other (Nicotine Dependence, Malnutrition) Social history: single Medications and Allergies Allergies Allergy/AdvReac Type Severity Reaction Status Date / Time No Known Allergies Allergy Unverified 11/01/15 05:47 Home Medications Medication Instructions Recorded Confirmed Last Taken Type ALBUTEROL NEB's [Proventil 0.083% 2.5 mg IH Q4HRT PRN 30 Days 06/09/17 Unknown Rx NEBS] Clindamycin [Clindamycin CAP] 300 mg PO Q8H 7 Days 06/09/17 Unknown Rx Fluticasone/Salmeterol [Advair 1 each INHALATION BID 30 Days 06/09/17 Unknown Rx 250-50 Diskus] Levofloxacin [Levaquin] 750 mg PO QDAY #7 tablet 06/09/17 Unknown Rx Prednisone [predniSONE 10 mg 10 mg PO .TAPER #1 tab.ds.pk 06/09/17 Unknown Rx (6-Day Pack, 21 Tabs)] Active Meds: Active Medications Acetaminophen (Tylenol) 650 mg PO Q4H PRN PRN Reason: Pain MILD(1-3)/Fever >100.5/PATEL Albuterol (Proventil) 2.5 mg IH Q4HRT PRN PRN Reason: Shortness Of Breath Piperacillin Sod/Tazobactam Sod (Zosyn/Ns 4.5gm/100ml) 4.5 gm in 100 mls @ 200 mls/hr IV Q8HR RIMA PRN Reason: Protocol Last Admin: 06/08/17 07:32 Dose: 200 mls/hr Vancomycin HCl (Vancomycin Pharmacy To Dose) 1 each IV PKCONSULT RIMA PRN Reason: Protocol Review of Systems Constitutional: fatigue, weakness, malaise, poor appetite, no weight loss, no fever, no chills, no sweats, no night sweats Cardiovascular: chest pain (related to coughing), no orthopnea, no palpitations , no rapid/irregular heart beat Respiratory: cough, cough with sputum, no hemoptysis Gastrointestinal: no abdominal pain, no nausea, no vomiting, no diarrhea, no melena, no hematochezia Genitourinary Male: no dysuria, no hematuria Integumentary: no rash Psychiatric: anxiety Endocrine: no cold intolerance, no heat intolerance, no polyphagia Allergic/Immunologic: wheezing, persistent infections, no urticaria, no allergic rhinitis Physical Examination Vital signs: Vital Signs Temp Pulse Resp BP Pulse Ox 97.9 F 99 H 22 124/90 90 06/06/17 12:56 06/06/17 12:56 06/06/17 12:56 06/06/17 12:56 06/06/17 12:56 General appearance: no acute distress, alert Eyes: non-icteric ENT: oropharynx moist Effort: normal Ascultation: Bilateral: diminished breath sounds, wheezes (with increased expiratory phase), rhonchi Cardiovascular: regular rate and rhythm Gastrointestinal: normoactive bowel sounds, non-distended Integumentary: normal Extremities: no cyanosis Results - Laboratory Findings CBC and BMP: 06/08/17 07:33 06/08/17 07:33 ABG ABG pH 7.411 pH Units (7.350-7.450) 06/06/17 15:07 ABG pCO2 50.5 mm Hg 06/06/17 15:07 ABG pO2 59.8 mm Hg (80.0-90.0) L 06/06/17 15:07 ABG O2 Saturation 91.5 % (95.0-99.0) L 06/06/17 15:07 PT/INR, D-dimer D-Dimer 357.39 ng/mlDDU (0-234) H 06/06/17 13:18 Abnormal lab findings: Abnormal Labs 06/06/17 06/06/17 06/06/17 18:34 19:53 23:04 Carbon Dioxide Creatinine Lactic Acid 2.20 H* 3.30 H* Ur Specific [place] > 1.059 H 06/08/17 07:33 Carbon Dioxide 36 H Creatinine 0.5 L Lactic Acid Ur Specific [place] - Diagnostic Findings Chest x-ray: report reviewed, image reviewed CT scan - chest: report reviewed, image reviewed Assessment and Plan COPD with exacerbation. Possible pneumonia with early cavitation changes. I did review the patient films and he appears to have scattered cystic areas that could be consistent also with his COPD history Tobacco abuse Recommendations Albuterol 2.5 milligram nebulizations every 4-6 hours with or without ipratropium Solu-Medrol 40-60 mg IV every 6-8 hours Oxygen support via nasal cannula or mask to maintain oximetry over 92% Ambulate patient when stable and monitor oximetry. Add portable oxygen 2 L/m if oximetry below 89% on room air. Update influenza and pneumonia vaccination, if not completed already. Follow-up antibiotics per ID Serial AFB sputum smear and culture 3. Discontinue respiratory isolation if negative HIV testing Alpha-1 antitrypsin level and phenotype Candidate for pulmonary rehabilitation Outpatient pulmonary evaluation, PFT workup for COPD severity stratification Nutritional support, weight reduction diet. BMI under 30 and avoid malnutrition , BMI under 19 DVT prophylaxis
[2017-06-09] MEDS: ZOSYN/NS 4.5GM/100ML 4.5 GM/100 ML VIAL IV SCH ×2 (05:42→14:42)
--- NOTE | 2017-06-09 08:37 | Progress Note ---
Assessment and Plan Assessment and plan: 51 YO Male with COPD, Nicotine Dependence, Malnutrition presents to ED for evaluation. Pt states that he has experienced persistent dry, nonproductive coughing and shortness of breath over the past three days with persistent symptoms the entire time. Upon further questioning, patient acknowledges that his chest is sore and that his soreness began after 1 day of coughing, and has worsened since that time. Pain soreness involved his entire chest and is worsened with coughing, and relieved when he is not coughing. Pt denies taking any medication for relief of his coughing. Pt denies fever, chills, Palpitations ,NVD, back pain, hemoptysis. Pt acknowledges unintentional weight loss but is unsure of how much, and has occasional night sweats. Pt denies any known exposure to TB. Sepsis Lactic acidosis Cavitory Pneumonia Rule Out TB COPD exacerbation Acute on chronic respiratory disease WITH HYPOXIA ON ABG Nicotine dependance Elevated D.dimer Hyponatremia-Resolved Plan Admitted with Tachycardia, Tachypenia, shortness of breath Continue supportive care, IV abx, oxygen. Note patient is not on home oxygen Continue Isolation, although I doubt TB but have been surprised in the past Await quantiferon gold, AFB, Only one test has been sent out, discussed with Nursing staff, Orders where placed on the 16th, patient should at this time have had 3 samples sent. Follow work up per ID and Pulmonary. Will need close pulmonary follow up Echo 50-55%. CTA negative for PE ID consult and discussed with them Nebs, Steroids Encouraged to Quit tobacco Cultures reviewed and negative PPD DVT/GI prophy Plan of care discussed with patient in detail Hospitalist Physical - Constitutional Vitals: Temp Pulse Resp BP Pulse Ox 98.0 F 73 18 149/94 96 06/09/17 07:26 06/09/17 07:26 06/09/17 07:26 06/09/17 07:26 06/09/17 07:26 General appearance: Present: mild distress Results - Labs CBC & Chem 7: 06/08/17 07:33 06/08/17 07:33 Labs: Laboratory Last Values WBC 10.6 K/mm3 (4.5-11.0) 06/08/17 07:33 RBC 4.38 M/mm3 (3.65-5.03) 06/08/17 07:33 Hgb 13.7 gm/dl (11.8-15.2) 06/08/17 07:33 Hct 40.4 % (35.5-45.6) 06/08/17 07:33 MCV 92 fl (84-94) 06/08/17 07:33 MCH 31 pg (28-32) 06/08/17 07:33 MCHC 34 % (32-34) 06/08/17 07:33 RDW 13.4 % (13.2-15.2) 06/08/17 07:33 Plt Count 325 K/mm3 (140-440) 06/08/17 07:33 Lymph % (Auto) 8.4 % (13.4-35.0) L 06/06/17 13:18 [place] % (Auto) 7.7 % (0.0-7.3) H 06/06/17 13:18 Eos % (Auto) 0.1 % (0.0-4.3) 06/06/17 13:18 Baso % (Auto) 0.3 % (0.0-1.8) 06/06/17 13:18 Lymph # 1.5 K/mm3 (1.2-5.4) 06/06/17 13:18 [place] # 1.4 K/mm3 (0.0-0.8) H 06/06/17 13:18 Eos # 0.0 K/mm3 (0.0-0.4) 06/06/17 13:18 Baso # 0.1 K/mm3 (0.0-0.1) 06/06/17 13:18 Seg Neutrophils % 83.5 % (40.0-70.0) H 06/06/17 13:18 Seg Neutrophils # 14.9 K/mm3 (1.8-7.7) H 06/06/17 13:18 D-Dimer 357.39 ng/mlDDU (0-234) H 06/06/17 13:18 ABG pH 7.411 pH Units (7.350-7.450) 06/06/17 15:07 ABG pCO2 50.5 mm Hg 06/06/17 15:07 ABG pO2 59.8 mm Hg (80.0-90.0) L 06/06/17 15:07 ABG HCO3 31.4 mmol/L (20.0-26.0) H 06/06/17 15:07 ABG O2 Saturation 91.5 % (95.0-99.0) L 06/06/17 15:07 ABG O2 Content 18.3 (0.0-44) 06/06/17 15:07 ABG Base Excess 5.5 mmol/L (-2.0-3.0) H 06/06/17 15:07 ABG Hemoglobin 14.7 gm/dl (14.0-18.0) 06/06/17 15:07 ABG Carboxyhemoglobin 2.5 % (0.0-5.0) 06/06/17 15:07 ABG Methemoglobin 0.6 % (0.0-1.5) 06/06/17 15:07 Oxyhemoglobin 88.7 % (95.0-99.0) L 06/06/17 15:07 FiO2 21 % 06/06/17 15:07 Sodium 141 mmol/L (137-145) D 06/08/17 07:33 Potassium 4.3 mmol/L (3.6-5.0) 06/06/17 13:18 Chloride 84.7 mmol/L (98-107) L 06/06/17 13:18 Carbon Dioxide 36 mmol/L (22-30) H 06/08/17 07:33 Anion Gap 18 mmol/L 06/06/17 13:18 BUN 9 mg/dL (9-20) 06/08/17 07:33 Creatinine 0.5 mg/dL (0.8-1.5) L 06/08/17 07:33 Estimated GFR > 60 ml/min 06/08/17 07:33 BUN/Creatinine Ratio 18 % 06/08/17 07:33 Glucose 77 mg/dL (75-100) 06/08/17 07:33 Lactic Acid 1.30 mmol/L (0.7-2.0) 06/08/17 10:53 Calcium 9.1 mg/dL (8.4-10.2) 06/08/17 07:33 Troponin T < 0.010 ng/mL (0.00-0.029) 06/06/17 19:51 C-Reactive Protein 3.10 mg/dL (0.00-1.30) H 06/08/17 07:33 NT-Pro-B Natriuret Pep 1005 pg/mL (0-900) H 06/06/17 13:18 Urine Color Yellow (Yellow) 06/06/17 18:34 Urine Turbidity Clear (Clear) 06/06/17 18:34 Urine pH 6.0 (5.0-7.0) 06/06/17 18:34 Ur Specific [place] > 1.059 (1.003-1.030) H 06/06/17 18:34 Urine Protein <15 mg/dl mg/dL (Negative) 06/06/17 18:34 Urine Glucose (UA) Neg mg/dL (Negative) 06/06/17 18:34 Urine Ketones Tr mg/dL (Negative) 06/06/17 18:34 Urine Blood Neg (Negative) 06/06/17 18:34 Urine Nitrite Neg (Negative) 06/06/17 18:34 Urine Bilirubin Neg (Negative) 06/06/17 18:34 Urine Urobilinogen < 2.0 mg/dL (<2.0) 06/06/17 18:34 Ur Leukocyte Esterase Neg (Negative) 06/06/17 18:34 Urine WBC (Auto) < 1.0 /HPF (0.0-6.0) 06/06/17 18:34 Urine RBC (Auto) 1.0 /HPF (0.0-6.0) 06/06/17 18:34 Urine Mucus Few /HPF 06/06/17 18:34
--- NOTE | 2017-06-09 10:39 | Progress Note ---
Assessment and Plan Assessment: 1) Sepsis: resolved. Etiology most likely COPD exacerbation +/- cavitary pneumonia. 2) Cavitary pneumonia: pre-test probability - low risk for TB, DDx. CAP, aspiration -Chest x-ray shows progression of COPD. -CRP=3.1 -CT of the chest showed no pulmonary embolism, positive mild peribronchial thickening with bronchitis with multifocal fine nodular interstitial infiltrates, few scattered red areas of consolidation and cavitation. 3) COPD exacerbation 4) Tobacco abuse Plan: -patient want to leave AMA -educated about wearing a mask outdoors -f/u AFB sputum x 1 sent -airborne isolation until goes home -f/u quantiferon-Tb gold, Legionella urine antigen, Streptococcus pneumoniae urine antigen and HIV testing -stop zosyn -upon discharge will do levaquin 750 mg po qday and clindamycin 300 mg PO TID total 10 days from 06/06. Thank you Dr Marin for your consultation, will follow up with you. Evelina Ramsay MD Infectious Diseases Specialist [facility], [place], [facility] ([facility]) M [phone] O [phone] Subjective Date of service: 06/09/17 Principal diagnosis: cavitary pneumonia Interval history: Feels better, wants to go home today, asking to leave AMA Current Antimicrobials: Zosyn 06/06 Current Antimicrobials: Vancomycin 06/07 Microbiology: Blood cultures: 06/06 ngtd Respiratory cultures: Objective - Exam Narrative Exam: General appearance: Alert in NAD, conversant Eyes: anicteric sclerae, moist conjunctivae; no lid-lag; PERRLA HENT: Atraumatic; oropharynx clear Neck: Trachea midline; supple, no thyromegaly or lymphadenopathy Lungs: +dianne wheezing decreased BC dianne CV: RRR, no murmurs Abdomen: Soft, non-tender; no masses or hepatosplenomegaly Extremities: No peripheral edema or extremity lymphadenopathy Skin: Normal temperature, turgor and texture; no rash, ulcers or subcutaneous nodules Psych: Appropriate affect, alert and oriented to person, place and time. Neuro: alert and oriented x 3. Moving all extermities Lines: No CVL / PICC - Constitutional Vitals: Vital Signs Temp Pulse Resp BP Pulse Ox 98.0 F 73 18 149/94 96 06/09/17 07:26 06/09/17 07:26 06/09/17 07:26 06/09/17 07:26 06/09/17 07:26 Temperature -Last 24 Hours Temperature 98.0 F Temperature 97.9 F Temperature 98.5 F Temperature 98.5 F Temperature 98.0 F Temperature 98.0 F - Labs CBC & Chem 7: 06/08/17 07:33 06/08/17 07:33 Labs: Abnormal lab results 06/08/17 Range/Units 07:33 C-Reactive Protein 3.10 H (0.00-1.30) mg/dL
--- NOTE | 2017-06-09 12:16 | Discharge Summary ---
Providers - Providers Date of Admission: 06/06/17 16:47 Attending physician: CHASTITY GREENE MD 06/06/17 16:55 Consult to Physician [CONS] Routine Consulting Provider: KING FORBES Reason For Exam: suspected TB Place consult to:: DR. FORBES Notified:: OFFICE Phone number called:: [phone] Was contact made?: Yes If yes, spoke with:: JEET Hurd called:: 09:16 Comment:: JOSE NOTIFANSON 06/07/17 11:05 Consult to Physician [CONS] Routine Consulting Provider: FAB GODWIN Reason For Exam: suspected TB Place consult to:: DR. BARAJAS Notified:: DR. BARAJAS Phone number called:: IN-HOUSE Was contact made?: Yes If yes, spoke with:: DR. BARAJAS Time called:: 12:20 Comment:: JOSE NOTIFIED Primary care physician: INTERNATIONAL NURSE Hospitalization Reason for admission: COPD EXACERBATION Condition: Stable Hospital course: 51 YO Male with COPD, Nicotine Dependence, Malnutrition presents to ED for evaluation. Pt states that he has experienced persistent dry, nonproductive coughing and shortness of breath over the past three days with persistent symptoms the entire time. Upon further questioning, patient acknowledges that his chest is sore and that his soreness began after 1 day of coughing, and has worsened since that time. Pain soreness involved his entire chest and is worsened with coughing, and relieved when he is not coughing. Pt denies taking any medication for relief of his coughing. Pt denies fever, chills, Palpitations ,NVD, back pain, hemoptysis. Pt acknowledges unintentional weight loss but is unsure of how much, and has occasional night sweats. Pt denies any known exposure to TB. Patient on admission was placed on isolation to rule out TB strong evaluation showed less likely TB although workup was already begun. Infectious diseases and pulmonary did see the patient's with a former agreeable for patient to be discharged due to patient's persistent nagging about going home on the basis that he wears a mask and has contact does accurately for reports to be relayed back to him. The quantiferon gold will be followed and he will be notified of the results and he is agreeable with going to the [facility] department for treatment if positive for TB. Patient was also by pulmonary recommendation for home oxygen evaluation multiple studies for end- stage COPD was also obtained and I did encourage the patient to follow-up with pulmonary. The patient specifically tells me that he is not following up with pulmonary he will follow with [facility] he states he is unfunded and stays at home all day. Echo cardiogram revealed EF of 50-55%. CTA was negative for PE Sepsis Lactic acidosis Cavitory Pneumonia Rule Out TB, GNR ruled out COPD exacerbation Acute on chronic respiratory disease WITH HYPOXIA ON ABG Nicotine dependance Elevated D.dimer Hyponatremia-Resolved . Disposition: DC-01 TO HOME OR SELFCARE Time spent for discharge: 35 MINS Core Measure Documentation - Palliative Care Palliative Care/ Comfort Measures: Not Applicable - Core Measures Any of the following diagnoses?: none - VTE Discharge Requirements Deep Vein Thrombosis/Pulmonary Embolism Present on Admission: No Exam - Physical Exam Narrative exam: VITAL SIGNS: Reviewed. GENERAL: The patient appeared well nourished and barrel chested. Vital signs as documented. HEAD: No signs of head trauma. EYES: Pupils are equal. Extraocular motions intact. EARS: Hearing grossly intact. MOUTH: Oropharynx is normal. NECK: No adenopathy, no JVD. CHEST: Chest with admittedly diminished breath sounds with mild crackles of the right lower lobe. Wob increased. CARDIAC: Regular rate and rhythm. S1 and S2, without murmurs, gallops, or rubs. VASCULAR: No Edema. Peripheral pulses normal and equal in all extremities. ABDOMEN: Soft, without detectable tenderness. No sign of distention. No rebound or guarding, and no masses palpated. Bowel Sounds normal. MUSCULOSKELETAL: Good range of motion of all major joints. Extremities without clubbing, cyanosis or edema. NEUROLOGIC EXAM: Alert and oriented x 3. No focal sensory or strength deficits. Speech normal. Follows commands. PSYCHIATRIC: Mood normal. SKIN: No rash or lesions. - Constitutional Vitals: Temp Pulse Resp BP Pulse Ox 97.9 F 69 18 156/98 91 06/09/17 11:40 06/09/17 11:40 06/09/17 11:40 06/09/17 11:40 06/09/17 11:40 Plan Activity: advance as tolerated, fall precautions Special Instructions: smoking cessation Durable Medical Equipment Needed Upon Discharge: other (PATIENT AGREES TO WEAR A MASK AT ALL TIMES HE IS LEAVING HOME OR HAS GUEST) Follow up with: PRIMARY CARE, [Primary Care Provider] - 3-5 Days VICKY VU MD [Staff Physician] - 7 Days Prescriptions: ALBUTEROL NEB's [Proventil 0.083% NEBS] 2.5 mg IH Q4HRT PRN 30 Days PRN Reason: Shortness Of Breath Clindamycin [Clindamycin CAP] 300 mg PO Q8H 7 Days Fluticasone/Salmeterol [Advair 250-50 Diskus] 1 each INHALATION BID 30 Days Levofloxacin [Levaquin] 750 mg PO QDAY #7 tablet Prednisone [predniSONE 10 mg (6-Day Pack, 21 Tabs)] 10 mg PO .TAPER #1 tab.ds.pk
[2017-06-09 16:47] VITALS: BP 158/96
== END 2017-06-09 17:40 | disposition home or self-care (01) | DRG 872 ==
LOC: ED 12:49 → 3A 16:47
PROVIDERS: ADMIT Internal Medicine; ATTEND Internal Medicine
PROC: 4A033R1 Measurement of Arterial Saturation, Peripheral, Percutaneous Approach (ICD-10-PCS; principal; 2017-06-06)
DX: A41.9 Sepsis, unspecified organism (principal); E46 Unspecified protein-calorie malnutrition; J44.1 Chronic obstructive pulmonary disease with (acute) exacerbation; E87.1 Hypo-osmolality and hyponatremia; F17.200 Nicotine dependence, unspecified, uncomplicated; Z87.01 Personal history of pneumonia (recurrent)
CPT/HCPCS: 36415; 71010; 71275; 80048; 81001; 82103; 82140; 82164; 82803; 83880; 84484; 85025; 85027; 85379; 86140; 87040; 87449; 93005; 93010; 93306; 94760; 96365; 96375; 99285; 99406; J0456; J0696; J2543; J2930; J3370; J3475; J7050; Q9967

== ENCOUNTER 2017-12-06 13:31 | Outpatient (CLI) | payer OTHER ==
[2017-12-06] MEDS ORDERED: PROVENTIL IH ONE (14:29)
== END 2017-12-06 13:32 | disposition home or self-care (01) ==
LOC: PF 13:31
PROVIDERS: ATTEND Internal Medicine
DX: R06.02 Shortness of breath (principal); R06.9 Unspecified abnormalities of breathing; F17.210 Nicotine dependence, cigarettes, uncomplicated; F81.0 Specific reading disorder; F81.81 Disorder of written expression
CPT/HCPCS: 94060; 94640; 94729

== ENCOUNTER 2020-01-03 14:09 | Inpatient (IN) | payer MEDICAID, OTHER ==
[2020-01-03 15:05] LABS: Basophils # (Auto) 0.1 K/mm3 (0.0-0.1); Basophils % (Auto) 0.9 % (0.0-1.8); Eosinophils # (Auto) 0.1 K/mm3 (0.0-0.4); Eosinophils % (Auto) 0.6 % (0.0-4.3); Hematocrit 53.7 % (35.5-45.6); Hemoglobin 17.8 gm/dl (11.8-15.2); Lymphocytes % (Auto) 23.7 % (13.4-35.0); Mean Corpuscular HGB Conc 33 % (32-34); Mean Corpuscular Volume 94 fl (84-94); Monocytes # (Auto) 0.6 K/mm3 (0.0-0.8); Monocytes % (Auto) 6.9 % (0.0-7.3); Platelet Count 188 K/mm3 (140-440); Red Cell Distribution Width 14.9 % (13.2-15.2)
[2020-01-03 15:27] LABS: Alanine Aminotransferase 16 units/L (7-56); Albumin 3.8 g/dL (3.9-5); BUN/Creatinine Ratio 20; Blood Urea Nitrogen 18 mg/dL (9-20); Calcium 9.1 mg/dL (8.4-10.2); Hemolysis Index 18
--- NOTE | 2020-01-03 15:50 | XRay Report ---
CHEST 2 VIEWS INDICATION / CLINICAL INFORMATION: DIFF BREATHING. COMPARISON: Chest x-ray on 06/06/2017. FINDINGS: SUPPORT DEVICES: None. HEART / MEDIASTINUM: No significant abnormality. LUNGS / PLEURA: Hyperexpansion suggesting obstructive airways disease. No focal consolidation or sign ificant pleural effusion. No pneumothorax. ADDITIONAL FINDINGS: No significant additional findings. IMPRESSION: 1. Findings suggesting obstructive airways disease without acute process. Signer Name: Heber Armstrong MD Signed: 01/03/2020 3:46 PM Workstation Name: [id number]
[2020-01-03 16:52] LABS: Chol/HDL Ratio 1.56 %
[2020-01-03] MEDS ORDERED: FUROSEMIDE 40 MG/4 ML INJ IV ONE (20:07)
[2020-01-03] MEDS ORDERED: hydrALAZINE 20 MG/1 ML INJ IV ONE ×2 (20:07→20:24)
[2020-01-03] MEDS ORDERED: IPRATROPIUM/ALBUTEROL SULFATE 3 ML AMPUL.NEB IH ONE (20:07)
[2020-01-03] MEDS ORDERED: methylPREDNISolone Sod Succinate 125 MG/2 ML INJ IV ONE (20:11)
[2020-01-03] MEDS ORDERED: cefTRIAXone/NS 1 GM/50 ML 1 GM/50 ML BAG IV ONE (20:25)
[2020-01-03 20:45] LABS: Bilirubin,Urine NEG (Negative); Blood,Urine NEG (Negative); Color,Urine Amber (Yellow); Hyaline Casts,Urine 3 /LPF; Mucus,Urine FEW /HPF; Protein,Urine <15 mg/dL mg/dL (Negative)
--- NOTE | 2020-01-03 21:03 | Emergency Department Report ---
ED General Adult HPI - General Chief complaint: Dyspnea/Respdistress Stated complaint: COPD/FEET SWELLING Time Seen by Provider: 01/03/20 20:06 Source: patient Mode of arrival: Ambulatory Limitations: No Limitations - History of Present Illness Initial comments: Mr. Delong is a 54 YO Male with COPD, 30 pack year smoker, hx of ETOH abuse, who presents to ED for sob bilat le swelling x 4 months. He was tx'd at [facility] 3 weeks ago and Dx with COPD exacerbation. Pt denies cough or fever, does have some noc wheezing, and intermittent shortness of breath. Symptoms are exacerbated by activity, and environmental exposure. State bilat LE pain and swelling, that is exacerbated by prolonged standing and walking. patient denies cp, no n/v, no diaphoresis, no back pain. Pt denies fever, chills, Palpitations. He is currently taking cipro for report cellulitis to bilat feet that he start 2 days go. Onset/Timin -: month(s) Location: lower extremity Radiation: non-radiation Severity scale (0 -10): 5 Quality: aching Consistency: intermittent Improves with: none Worsens with: movement, other (environmental exposure ) Associated Symptoms: shortness of breath. denies: chest pain, cough, fever/chills, headaches, nausea/vomiting - Related Data Previous Rx's Medication Instructions Recorded Last Taken Type ALBUTEROL NEB's [Proventil 0.083% 2.5 mg IH Q4HRT PRN 30 Days nebu 06/09/17 Unknown Rx NEBS] Clindamycin [Clindamycin CAP] 300 mg PO Q8H 7 Days cap 06/09/17 Unknown Rx Fluticasone/Salmeterol (Nf) 1 each INHALATION BID 30 Days 06/09/17 Unknown Rx [Advair 250-50 Diskus] blst.w.dev Prednisone [predniSONE 10 mg 10 mg PO .TAPER #1 tab.ds.pk 06/09/17 Unknown Rx (6-Day Pack, 21 Tabs)] levoFLOXacin [Levaquin] 750 mg PO QDAY #7 tablet 06/09/17 Unknown Rx Allergies Allergy/AdvReac Type Severity Reaction Status Date / Time No Known Allergies Allergy Unverified 11/01/15 05:47 ED Review of Systems ROS: Stated complaint: COPD/FEET SWELLING Other details as noted in HPI Constitutional: denies: chills, fever Eyes: denies: eye pain, eye discharge, vision change ENT: denies: ear pain, throat pain Respiratory: shortness of breath, wheezing Cardiovascular: denies: chest pain, palpitations Endocrine: no symptoms reported Gastrointestinal: as per HPI. denies: abdominal pain, nausea, vomiting Genitourinary: denies: urgency, dysuria Musculoskeletal: arthralgia, other (bilat le pain ). denies: back pain, joint swelling Skin: denies: rash, lesions Neurological: denies: headache, weakness, numbness, paresthesias, confusion Psychiatric: denies: anxiety, depression Hematological/Lymphatic: denies: easy bleeding, easy bruising ED Past Medical Hx - Past Medical History Hx Congestive Heart Failure: No Hx Diabetes: No Hx Asthma: No Hx COPD: Yes Hx HIV: No Additional medical history: pneumonia/ CIRRHOSIS OF LIVER - Surgical History Additional Surgical History: Neck - Social History Smoking Status: Current Every Day Smoker Substance Use Type: Alcohol - Medications Home Medications: Home Medications Medication Instructions Recorded Confirmed Last Taken Type ALBUTEROL NEB's [Proventil 0.083% 2.5 mg IH Q4HRT PRN 30 Days nebu 06/09/17 Unknown Rx NEBS] Clindamycin [Clindamycin CAP] 300 mg PO Q8H 7 Days cap 06/09/17 Unknown Rx Fluticasone/Salmeterol (Nf) 1 each INHALATION BID 30 Days 06/09/17 Unknown Rx [Advair 250-50 Diskus] blst.w.dev Prednisone [predniSONE 10 mg 10 mg PO .TAPER #1 tab.ds.pk 06/09/17 Unknown Rx (6-Day Pack, 21 Tabs)] levoFLOXacin [Levaquin] 750 mg PO QDAY #7 tablet 06/09/17 Unknown Rx ED Physical Exam - General Limitations: No Limitations General appearance: alert, in no apparent distress - Head Head exam: Present: atraumatic, normocephalic - Eye Eye exam: Present: normal appearance, PERRL, EOMI Pupils: Present: normal accommodation - ENT ENT exam: Present: normal exam, mucous membranes moist - Neck Neck exam: Present: normal inspection, full ROM. Absent: tenderness, lymphadenopathy, thyromegaly - Respiratory Respiratory exam: Present: wheezes, decreased breath sounds (bilat le). Absent: respiratory distress, stridor, chest wall tenderness - Expanded Respiratory Exam Expanded Location: Wheezes: Right, Left, Upper, Decreased Breath Sounds: Lower, Left, Right - Cardiovascular Cardiovascular Exam: Present: regular rate, normal rhythm, normal heart sounds. Absent: systolic murmur, diastolic murmur, rubs, gallop - GI/Abdominal GI/Abdominal exam: Present: soft, normal bowel sounds. Absent: distended, tenderness, bruit, hernia - Rectal Rectal exam: Present: deferred - Extremities Exam Extremities exam: Present: normal inspection, full ROM, normal capillary refill, pedal edema. Absent: tenderness, calf tenderness - Back Exam Back exam: Present: normal inspection, full ROM. Absent: tenderness, CVA tenderness (R), CVA tenderness (L), rash noted - Neurological Exam Neurological exam: Present: alert, oriented X3, CN II-XII intact, normal gait, reflexes normal - Expanded Neurological Exam Expanded Patient oriented to: Present: person, place, time Speech: Present: fluid speech Motor strength exam: RUE: 5, LUE: 5, RLE: 5, LLE: 5 Best Eye Response (Farzad): (4) open spontaneously Best Motor Response ([place]): (6) obeys commands Best Verbal Response (Farzad): (5) oriented Farzad Total: 15 - Psychiatric Psychiatric exam: Present: normal affect - Skin Skin exam: Present: warm, dry, intact, normal color. Absent: rash ED Course Vital Signs 01/03/20 01/03/20 01/03/20 14:13 14:15 21:31 Temperature 97.9 F 98 F 97.4 F L Pulse Rate 101 H 98 H 92 H Respiratory 20 24 18 Rate Blood Pressure 143/116 143/116 109/80 Blood Pressure [Right] O2 Sat by Pulse 78 L 82 L 92 Oximetry 01/03/20 01/03/20 01/03/20 21:33 21:34 21:40 Temperature 97.4 F L Pulse Rate 92 H Respiratory 18 Rate Blood Pressure 109/80 109/80 Blood Pressure 109/80 [Right] O2 Sat by Pulse 92 Oximetry ED Medical Decision Making - Lab Data Result diagrams: 01/03/20 14:39 01/03/20 14:39 Labs 01/03/20 01/03/20 01/03/20 14:39 14:39 14:39 WBC 8.6 RBC 5.70 H Hgb 17.8 H Hct 53.7 H MCV 94 MCH 31 MCHC 33 RDW 14.9 Plt Count 188 Lymph % (Auto) 23.7 [place] % (Auto) 6.9 Eos % (Auto) 0.6 Baso % (Auto) 0.9 Lymph # 2.0 [place] # 0.6 Eos # 0.1 Baso # 0.1 Seg Neutrophils % 67.9 Seg Neutrophils # 5.8 Sodium 131 L Potassium 4.2 Chloride 79.3 L Carbon Dioxide 39 H Anion Gap 17 BUN 18 Creatinine 0.9 Estimated GFR > 60 BUN/Creatinine Ratio 20 Glucose 109 H Lactic Acid Calcium 9.1 Total Bilirubin 1.00 AST 25 ALT 16 Alkaline Phosphatase 132 H Troponin T 0.036 H NT-Pro-B Natriuret Pep 6700 H Total Protein 7.2 Albumin 3.8 L Albumin/Globulin Ratio 1.1 Triglycerides 53 Cholesterol 103 LDL Cholesterol Direct 33 L HDL Cholesterol 66 H Cholesterol/HDL Ratio 1.56 Urine Color Urine Turbidity Urine pH Ur Specific [place] Urine Protein Urine Glucose (UA) Urine Ketones Urine Blood Urine Nitrite Urine Bilirubin Urine Urobilinogen Ur Leukocyte Esterase Urine WBC (Auto) Urine RBC (Auto) Hyaline Casts Urine Mucus 01/03/20 01/03/20 21:00 Unknown WBC RBC Hgb Hct MCV MCH MCHC RDW Plt Count Lymph % (Auto) [place] % (Auto) Eos % (Auto) Baso % (Auto) Lymph # [place] # Eos # Baso # Seg Neutrophils % Seg Neutrophils # Sodium Potassium Chloride Carbon Dioxide Anion Gap BUN Creatinine Estimated GFR BUN/Creatinine Ratio Glucose Lactic Acid 0.80 Calcium Total Bilirubin AST ALT Alkaline Phosphatase Troponin T NT-Pro-B Natriuret Pep Total Protein Albumin Albumin/Globulin Ratio Triglycerides Cholesterol LDL Cholesterol Direct HDL Cholesterol Cholesterol/HDL Ratio Urine Color Irasema Urine Turbidity Clear Urine pH 5.0 Ur Specific [place] 1.013 Urine Protein <15 mg/dl Urine Glucose (UA) Neg Urine Ketones Neg Urine Blood Neg Urine Nitrite Neg Urine Bilirubin Neg Urine Urobilinogen 2.0 Ur Leukocyte Esterase Neg Urine WBC (Auto) 1.0 Urine RBC (Auto) 2.0 Hyaline Casts 3 Urine Mucus Few - EKG Data EKG shows normal: sinus rhythm Rate: normal - EKG Data When compared to previous EKG there are: no significant change Interpretation: no acute changes, nonspecific ST-T wave aimee (NSR no ST Elevated GA , Rigt Atrial Enlargment, interp By ED attending ) - Radiology Data Radiology results: report reviewed, image reviewed Findings Reporting MD: Heber Armstrong Dictation Time: January 03, 2020 14:46 Pump Attendant: Not available Complaints Coordinator Date: CHEST 2 VIEWS INDICATION / CLINICAL INFORMATION: DIFF BREATHING. COMPARISON: Chest x-ray on 06/06/2017. FINDINGS: SUPPORT DEVICES: None. HEART / MEDIASTINUM: No significant abnormality. LUNGS / PLEURA: Hyperexpansion suggesting obstructive airways disease. No focal consolidation or significant pleural effusion. No pneumothorax. ADDITIONAL FINDINGS: No significant additional findings. IMPRESSION: 1. Findings suggesting obstructive airways disease without acute process. Signer Name: Heber Armstrong MD Signed: 01/03/2020 2:46 PM Workstation Name: [id number] - Medical Decision Making ekg noted above, NSR no ST Elevated GA, interp by ed attending, cxr: consistent with obstructive airway disease, no infiltrates, no opacities, cmp and cbc noted above, trop:0.036, BNP: 6700, lactic: 0.8, wheezing improved with duo neb, pt given rocephin 1gm ivpb, blood cultures obtain prior, consulted ed attending recommendation:Admit to hospital list for COPD exacerbation, Elevated trop, CAP, Hypoxemia, Elevated BNP, discussed tx plan with patient, patient verbalized agreement and understanding of same. Consulted Hospitalist, advises will see patient on rounds, plan: admit to Hospitalist DX COPD exacerbation, Elevated trop, CAP, Hypoxemia, Elevated BNP, pt care hand off at this time. Critical care attestation.: If time is entered above; I have spent that time in minutes in the direct care of this critically ill patient, excluding procedure time. ED Disposition Clinical Impression: COPD exacerbation, Hypoxemia, Elevated troponin CAP (community acquired pneumonia) Qualifiers: Laterality: right Lung location: lower lobe of lung Qualified Code(s): J18.9 - Pneumonia, unspecified organism Disposition: OP ADMIT IP TO THIS HOSP Is pt being admited?: Yes Does the pt Need Aspirin: No Instructions: Chronic Obstructive Pulmonary Disease (ED), Community-acquired Pneumonia (ED), Bacterial Pneumonia (ED) Time of Disposition: 22:09
[2020-01-03] MEDS ORDERED: ALBUTEROL 2.5 MG/3 ML NEBU IH PRN (22:04)
[2020-01-03] MEDS ORDERED: IPRATROPIUM 0.02% NEBU 2.5 ML IH PRN (22:06)
[2020-01-03] MEDS ORDERED: ACETAMINOPHEN 325 MG TAB PO PRN (23:36)
[2020-01-03] MEDS ORDERED: MAGNESIUM HYDROXIDE (MOM) ORAL LIQD UDC PO PRN (23:36)
[2020-01-03] MEDS ORDERED: ONDANSETRON 4 MG/2 ML INJ IV PRN (23:36)
[2020-01-04] MEDS: IPRATROPIUM/ALBUTEROL SULFATE 3 ML AMPUL.NEB IH SCH ×6 (02:06→20:00)
[2020-01-04] MEDS ORDERED: IPRATROPIUM/ALBUTEROL SULFATE 3 ML AMPUL.NEB IH ONE ×5 (02:06→19:58)
--- NOTE | 2020-01-04 03:43 | History and Physical Report ---
History of Present Illness Date of examination: 01/03/20 Date of admission: 01/03/20 21:57 Chief complaint: Shortness of breath History of present illness: 54-year-old male with known history of COPD, history of alcohol abuse presenting to the emergency room today complaining of shortness of breath which has been ongoing on and off for the past 4 months. Patient indicates that he was diagnosed with COPD exacerbation about 3 weeks ago at a [facility] in [facility]. He also indicates that he has had some lower extremity swelling and what appears to be cellulitis of his lower extremity. He has been placed on ciprofloxacin about 2 days ago. He denies any fever or chills, no nausea vomiting, no diarrhea or abdominal pain. Denies any chest pain and denies any headache or dizziness. Patient indicates that his shortness of breath gets worse on exertion and occasionally has some wheezing. Upon arrival in the emergency room today was found to be slightly hypoxic with O2 saturation of 86% on room air which later improved to greater than 92% after being placed on oxygen by nasal cannula. Past History Past Medical History: COPD, hypertension, other (Liver cirrhosis, history of pneumonia) Social history: smoking, alcohol abuse Family history: no significant family history Medications and Allergies Allergies Allergy/AdvReac Type Severity Reaction Status Date / Time No Known Allergies Allergy Unverified 11/01/15 05:47 Home Medications Medication Instructions Recorded Confirmed Last Taken Type ALBUTEROL NEB's [Proventil 0.083% 2.5 mg IH Q4HRT PRN 30 Days nebu 06/09/17 Unknown Rx NEBS] Clindamycin [Clindamycin CAP] 300 mg PO Q8H 7 Days cap 06/09/17 Unknown Rx Fluticasone/Salmeterol (Nf) 1 each INHALATION BID 30 Days 06/09/17 Unknown Rx [Advair 250-50 Diskus] blst.w.dev Prednisone [predniSONE 10 mg 10 mg PO .TAPER #1 tab.ds.pk 06/09/17 Unknown Rx (6-Day Pack, 21 Tabs)] levoFLOXacin [Levaquin] 750 mg PO QDAY #7 tablet 06/09/17 Unknown Rx Active Meds: Active Medications Acetaminophen (Tylenol) 650 mg PO Q4H PRN PRN Reason: Pain MILD(1-3)/Fever >100.5/PATEL Albuterol (Proventil) 2.5 mg IH Q4H PRN PRN Reason: sob wheezing Albuterol/Ipratropium (Duoneb *Not For Prn Use*) 1 ampul IH Q4HRT [facility] Last Admin: 01/04/20 02:06 Dose: 1 ampul Documented by: Levofloxacin/Dextrose (Levaquin 750mg/150ml) 750 mg in 150 mls @ 100 mls/hr IV Q24HR [facility]; Protocol Magnesium Hydroxide (Milk Of Magnesia) 30 ml PO Q4H PRN PRN Reason: Constipation Methylprednisolone Sodium Succinate (Solu-Medrol) 40 mg IV Q8HR [facility]IM[facility] Ondansetron HCl (Zofran) 4 mg IV Q8H PRN PRN Reason: Nausea And Vomiting Sodium Chloride (Sodium Chloride Flush Syringe 10 Ml) 10 ml IV BID [facility] Sodium Chloride (Sodium Chloride Flush Syringe 10 Ml) 10 ml IV PRN PRN PRN Reason: LINE FLUSH Review of Systems Constitutional: no fever, no chills Ears, nose, mouth and throat: no sore throat, no vertigo Cardiovascular: no chest pain, no palpitations Respiratory: cough, shortness of breath Gastrointestinal: no abdominal pain, no nausea, no vomiting, no diarrhea Genitourinary Male: no dysuria, no hematuria Musculoskeletal: no neck pain, no low back pain Integumentary: no rash, no pruritis Neurological: no headaches, no change in mentation Psychiatric: no anxiety, no confusion Exam - Constitutional Vitals: Temp Pulse Resp BP Pulse Ox 97.4 F L 96 H 20 109/80 95 01/03/20 21:33 01/04/20 02:08 01/04/20 02:08 01/03/20 21:40 01/04/20 02:12 General appearance: Present: mild distress, well-nourished - EENT Eyes: Present: PERRL, EOM intact ENT: hearing intact, clear oral mucosa, dentition normal - Neck Neck: Present: supple, normal ROM - Respiratory Respiratory effort: normal Respiratory: bilateral: diminished, wheezing - Cardiovascular Rhythm: regular Heart Sounds: Present: S1 & S2 - Extremities Extremities: no ischemia, pulses intact Extremity abnormal: edema (1-2 + edema bilaterally, blister over the dorsum of the left foot with minimal redness), cold - Abdominal General gastrointestinal: Present: soft, non-tender, non-distended, normal bowel sounds - Integumentary Integumentary: Present: clear, warm, dry - Musculoskeletal Musculoskeletal: strength equal bilaterally - Psychiatric Psychiatric: appropriate mood/affect, intact judgment & insight, cooperative - Neurologic Neurologic: CNII-XII intact, moves all extremities HEART Score - HEART Score Troponin: Troponin T 0.019 ng/mL (0.00-0.029) 01/03/20 20:31 Results - Labs CBC & Chem 7: 01/04/20 04:38 01/04/20 04:38 Labs: Abnormal lab results 01/03/20 01/03/20 01/03/20 Range/Units 14:39 14:39 14:39 RBC 5.70 H (3.65-5.03) M/mm3 Hgb 17.8 H (11.8-15.2) gm/dl Hct 53.7 H (35.5-45.6) % Sodium 131 L (137-145) mmol/L Chloride 79.3 L (98-107) mmol/L Carbon Dioxide 39 H (22-30) mmol/L Glucose 109 H (75-100) mg/dL Alkaline Phosphatase 132 H (35-129) units/L Troponin T 0.036 H (0.00-0.029) ng/mL NT-Pro-B Natriuret Pep 6700 H (0-900) pg/mL Albumin 3.8 L (3.9-5) g/dL LDL Cholesterol Direct 33 L (50-130) mg/dL HDL Cholesterol 66 H (40-59) mg/dL Assessment and Plan - Patient Problems (1) COPD exacerbation Current Visit: Yes Status: Acute Plan to address problem: Patient admitted and placed on nebulizing treatments. We also placed on IV steroids. Will place on empiric IV antibiotics for possible underlying bronchitis. (2) Hypoxemia Current Visit: Yes Status: Acute Plan to address problem: Possibly secondary to the COPD. Will keep on oxygen and keep O2 saturation greater or equal to 92%. (3) Nicotine dependence Current Visit: No Status: Acute Plan to address problem: Patient counseled on quitting tobacco use. We offer nicotine patch as needed. (4) DVT prophylaxis Current Visit: No Status: Acute Plan to address problem: Patient placed on subcutaneous heparin. (5) Full code status Current Visit: Yes Status: Acute
[2020-01-04] MEDS ORDERED: methylPREDNISolone Sod Succinate 40 MG/1 ML INJ ONE (05:33)
[2020-01-04 05:36] LABS: Hematocrit 51.9 % (35.5-45.6); Hemoglobin 16.9 gm/dl (11.8-15.2); Mean Corpuscular HGB Conc 33 % (32-34); Mean Corpuscular Volume 95 fl (84-94); Platelet Count 167 K/mm3 (140-440); Red Blood Count 5.46 M/mm3 (3.65-5.03); Red Cell Distribution Width 14.6 % (13.2-15.2)
[2020-01-04] MEDS: methylPREDNISolone Sod Succinate 40 MG/1 ML INJ IV SCH ×3 (05:38→22:04)
[2020-01-04 05:52] LABS: INR 0.87 (0.87-1.13)
[2020-01-04 05:58] LABS: BUN/Creatinine Ratio 23; Blood Urea Nitrogen 18 mg/dL (9-20)
[2020-01-04 06:31] LABS: Hemolysis Index 121
[2020-01-04 07:00] LABS: Basophils % (Manual) 0 % (0.0-1.8); Eosinophils % (Manual) 0 % (0.0-4.3); Monocytes % (Manual) 0 % (0.0-7.3); Total Cells Counted 100
[2020-01-04 07:05] LABS: Platelet Estimate Consistent w Auto; RBC Morphology Normal
--- NOTE | 2020-01-04 12:38 | Event Note ---
Date: 01/04/20 Patient seen and examined 54-year-old male with known history of COPD, history of alcohol abuse presenting to the emergency room complaining of shortness of breath. Upon arrival in the emergency room today was found to be slightly hypoxic with O2 saturation of 86% on room air which later improved to greater than 92% after being placed on oxygen by nasal cannula. Continue COPD protocol with scheduled nebs empiric antibiotic and steroid If clinically stable possible discharge in 1 or 2 days
[2020-01-04] MEDS ORDERED: methylPREDNISolone Sod Succinate 125 MG/2 ML INJ ONE (14:38)
[2020-01-04] MEDS ORDERED: HEPARIN 5,000 UNIT/1 ML VIAL ONE (14:38)
[2020-01-04] MEDS: HEPARIN 5,000 UNIT/1 ML VIAL SUB-Q SCH ×2 (15:00→22:06)
[2020-01-04] MEDS ORDERED: LORazepam 2 MG/ML VIAL IV PRN (15:13)
[2020-01-04] MEDS ORDERED: chlordiazePOXIDE 25 MG CAP ONE (16:03)
[2020-01-04] MEDS: chlordiazePOXIDE 25 MG CAP PO SCH ×2 (16:04→22:04)
[2020-01-04] MEDS ORDERED: ALBUTEROL 2.5 MG/3 ML NEBU IH PRN (23:00)
[2020-01-05] MEDS: IPRATROPIUM/ALBUTEROL SULFATE 3 ML AMPUL.NEB IH SCH ×3 (02:42→14:31)
[2020-01-05] MEDS: HEPARIN 5,000 UNIT/1 ML VIAL SUB-Q SCH ×2 (05:15→14:57)
[2020-01-05] MEDS: chlordiazePOXIDE 25 MG CAP PO SCH ×2 (05:15→14:57)
[2020-01-05] MEDS: methylPREDNISolone Sod Succinate 40 MG/1 ML INJ IV SCH (05:15)
[2020-01-05] MEDS ORDERED: BUDESONIDE 0.5 MG/2 ML NEBU IH SCH (08:00)
[2020-01-05] MEDS ORDERED: ARFORMOTEROL 15 MCG/2 ML NEBU IH SCH (08:00)
[2020-01-05 09:35] LABS: BUN/Creatinine Ratio 22; Blood Urea Nitrogen 11 mg/dL (9-20); Calcium 9.3 mg/dL (8.4-10.2); Hemolysis Index 19
[2020-01-05] MEDS ORDERED: levoFLOXacin 750 MG TAB PO SCH (10:00)
--- NOTE | 2020-01-05 13:57 | Progress Note ---
Assessment and Plan Acute COPD exacerbation --Monitor patient to telemetry - provide scheduled nebulizer breathing treatment and as needed -Continue on empiric steroid and antibiotic -We will assess for home O2 requirement Acute hypoxic respiratory failure -Room air O2 was 86% on admission -Due to COPD exacerbation -Continue to manage her supplemental O2, frequent nebs empiric steroids and antibiotics -We will assess for home O2 requirement Bilateral lower extremity cellulitis -Continue antibiotics, follow blood culture Mild hyponatremia, continue to monitor BMP Hyperkalemia, will repeat potassium level continue to monitor clinically -Patient has no bradycardic episode Alcohol abuse -Last drink was 4 days ago -Monitor with [facility] protocol Tobacco abuse, counseled for cessation -Nicotine patch if needed DVT prophylaxis, Lovenox Subjective Date of service: 01/04/20 Interval history: Patient seen and examined. Medical records and medication list reviewed. No acute event overnight noted by the RN. Patient complains of difficulty breathing even on resting. Patient is t olerating diet. Discussed plan of care at bedside with patient. Objective - Constitutional Vitals: Vital Signs - 12hr 01/05/20 01/05/20 01/05/20 02:43 04:04 04:19 Temperature 97.5 F L Pulse Rate 89 87 Pulse Rate [ 89 Bilateral Throughout] Respiratory 18 Rate Respiratory 20 Rate [Bilateral Throughout] Blood Pressure 114/48 O2 Sat by Pulse 93 Oximetry 01/05/20 01/05/20 07:31 08:10 Temperature 98.0 F Pulse Rate 82 Pulse Rate [ 84 Bilateral Throughout] Respiratory 18 Rate Respiratory 20 Rate [Bilateral Throughout] Blood Pressure 109/73 O2 Sat by Pulse 93 93 Oximetry General appearance: Present: no acute distress, disheveled - EENT Eyes: PERRL, EOM intact ENT: hearing intact, clear oral mucosa Ears: bilateral: normal - Neck Neck: supple, normal ROM - Respiratory Respiratory effort: normal Respiratory: bilateral: diminished - Cardiovascular Rhythm: regular Heart Sounds: Present: S1 & S2. Absent: gallop, rub Extremities: pulses intact, Full ROM Extremity abnormal: erythema, tenderness - Gastrointestinal General gastrointestinal: Present: soft, non-tender, non-distended, normal bowel sounds - Integumentary Integumentary: clear, warm, dry - Musculoskeletal Musculoskeletal: 1, strength equal bilaterally - Neurologic Neurologic: moves all extremities - Psychiatric Psychiatric: memory intact, appropriate mood/affect, intact judgment & insight - Labs CBC & Chem 7: 01/04/20 04:38 01/05/20 08:26 Labs: Abnormal lab results 01/05/20 Range/Units 08:26 Sodium 129 L (137-145) mmol/L Chloride 78.0 L (98-107) mmol/L Carbon Dioxide 39 H (22-30) mmol/L Creatinine 0.5 L (0.8-1.5) mg/dL Glucose 294 H (75-100) mg/dL HEART Score - HEART Score Troponin: Troponin T 0.019 ng/mL (0.00-0.029) 01/03/20 20:31
--- NOTE | 2020-01-05 14:06 | Discharge Summary ---
Providers - Providers Date of Admission: 01/03/20 21:57 Date of discharge: 01/05/20 Attending physician: АЛЕКСАНДР GARCIA 01/05/20 08:14 Consult to Case Management [CONS] Routine Services Needed at Discharge: Home O2 Notified:: case management Primary care physician: [facility] Hospitalization Condition: Stable Hospital course: 54-year-old male with history of COPD, alcohol and tobacco abuse presented to the hospital with complaints of difficulty breathing which is ongoing for last 4-month. Patient states that he was recently admitted to the [facility] and was diagnosed with COPD but he was discharged home without oxygen. Patient states that since discharge from [facility] he remained symptomatic and his breathing only just got worse. He also complains of bilateral lower extremity erythema and pain. Upon arrival to the ER patient noted to be hypoxic with oxygen saturation 86% on room air and admitted to the hospital with COPD exacerbation acute respiratory failure and bilateral lower extremity cellulitis. Patient was admitted to medical floor with scheduled nebs, iv abx, iv steroids and supplemental O2 to keep O2 sat at 94%. CXR showed no infiltrates. He was also placed on IV antibiotic for cellulitis. Blood culture was negative. He was assess for home oxygen requirement and arranged oxygen before discharge. Patients symptom improved with medical management. Patient was then discharged home with home oxygen in stable condition with outpt f/u. Chest x-ray: Findings suggesting obstructive airway disease without acute process Discharge diagnosis.: Acute COPD exacerbation Acute hypoxemic respiratory failure Bilateral lower extremity cellulitis without sepsis Mild hyponatremia Hyperkalemia, resolved Alcohol abuse Tobacco abuse Hyperglycemia due to steroid Physical exam: General appearance: Present: no acute distress, - EENT Eyes: PERRL, EOM intact ENT: hearing intact, clear oral mucosa Ears: bilateral: normal - Neck Neck: supple, normal ROM - Respiratory Respiratory effort: normal Respiratory: bilateral: diminished - Cardiovascular Rhythm: regular Heart Sounds: Present: S1 & S2. Absent: gallop, rub Extremities: pulses intact, Full ROM Extremity abnormal: erythema, tenderness - Gastrointestinal General gastrointestinal: Present: soft, non-tender, non-distended, normal bowel sounds - Integumentary Integumentary: clear, warm, dry - Musculoskeletal Musculoskeletal: 1, strength equal bilaterally - Neurologic Neurologic: moves all extremities - Psychiatric Psychiatric: memory intact, appropriate mood/affect, intact judgment & insight Disposition: DC-01 TO HOME OR SELFCARE Time spent for discharge: 34 minutes Core Measure Documentation - Palliative Care Palliative Care/ Comfort Measures: Not Applicable - Core Measures Any of the following diagnoses?: none Exam - Constitutional Vitals: Temp Pulse Resp BP Pulse Ox 98.0 F 84 20 109/73 93 01/05/20 07:31 01/05/20 08:10 01/05/20 08:10 01/05/20 07:31 01/05/20 08:10 Plan Activity: advance as tolerated Weight Bearing Status: Non-Weight Bearing Diet: low fat Special Instructions: smoking cessation, other (Alcohol abstinence) Durable Medical Equipment Needed Upon Discharge: Oxygen (4L) Follow up with: PRIMARY CAREMD [Primary Care Provider] - 3-5 Days ZACK PAUL MD [Staff Physician] - 7 Days Prescriptions: Clindamycin [Clindamycin CAP] 300 mg PO Q8H 5 Days cap Prednisone [predniSONE 10 mg (6-Day Pack, 21 Tabs)] 10 mg PO .TAPER #1 tab.ds.pk ALBUTEROL NEB's [Proventil 0.083% NEBS] 2.5 mg IH Q4HRT PRN 30 Days nebu PRN Reason: Shortness Of Breath
[2020-01-05 14:08] VITALS: BP 122/77
[2020-01-05] MEDS ORDERED: methylPREDNISolone Sod Succinate 40 MG/1 ML INJ IV SCH (22:00)
== END 2020-01-05 16:36 | disposition home or self-care (01) | DRG 189 ==
LOC: ED 14:09 → 4A 21:57
PROVIDERS: ADMIT Internal Medicine Geriatric Medicine; ATTEND Internal Medicine
DX: J96.01 Acute respiratory failure with hypoxia (principal); J18.9 Pneumonia, unspecified organism; L03.116 Cellulitis of left lower limb; L03.115 Cellulitis of right lower limb; E87.1 Hypo-osmolality and hyponatremia; E87.5 Hyperkalemia; J44.1 Chronic obstructive pulmonary disease with (acute) exacerbation; F17.200 Nicotine dependence, unspecified, uncomplicated; F10.10 Alcohol abuse, uncomplicated; R73.9 Hyperglycemia, unspecified; I10 Essential (primary) hypertension; T38.0X5A Adverse effect of glucocorticoids and synthetic analogues, initial encounter; Y92.89 Other specified places as the place of occurrence of the external cause; Z71.6 Tobacco abuse counseling
CPT/HCPCS: 36415; 71046; 80048; 80053; 80061; 81001; 82140; 83880; 84484; 85007; 85025; 85610; 87040; 93005; 94640; 94644; 94760; G0378; J0360; J0696; J1644; J1940; J1956; J2920; J2930

== ENCOUNTER 2020-05-06 20:59 | Emergency (ER) | payer MEDICAID ==
[~2020-05-06 20:59] MED LIST: ATROPINE 0.1% (1 MG/10 ML) CARDIAC SYRINGE ONE; EPINEPHrine 1 MG/10 ML SYRINGE ONE; SODIUM BICARB 8.4% 50 MEQ/50 ML SYRINGE IV ONE
--- NOTE | 2020-05-06 21:17 | Emergency Department Report ---
HPI - General Time Seen by Provider: 05/06/20 21:09 - HPI HPI: This is a 54-year-old male who presents to the emergency department via EMS from home in cardiac arrest. Apparently the patient was found just outside of the shower, bleeding from his elbow, and unresponsive. Unknown who called for EMS but the patient was apparently down and unresponsive for about 20 minutes prior to EMS arrival. EMS intubated the patient with an 8-0 tube and he was receiving bag valve ventilation. He was receiving chest compressions. And the patient received 4 rounds of epinephrine and 1 of sodium bicarbonate. Overall they were doing ACLS protocol for about 15 to 20 minutes after their arrival and prior to presentation in the emergency department. Patient has been to our facility previously and appears to have a history of COPD, asthma and tobacco dependence. ED Past Medical Hx - Past Medical History Hx Hypertension: Yes Hx Congestive Heart Failure: No Hx Diabetes: No Hx Asthma: No Hx COPD: Yes Hx HIV: No Additional medical history: pneumonia/ CIRRHOSIS OF LIVER - Surgical History Additional Surgical History: Neck - Social History Smoking Status: Current Every Day Smoker - Medications Home Medications: Home Medications Medication Instructions Recorded Confirmed Last Taken Type Fluticasone/Salmeterol (Nf) 1 each INHALATION BID 30 Days 06/09/17 01/04/20 Unknown Rx [Advair 250-50 Diskus (Nf)] blst.w.dev ALBUTEROL NEB's [Proventil 0.083% 2.5 mg IH Q4HRT PRN 30 Days nebu 01/05/20 Unknown Rx NEBS] Clindamycin [Clindamycin CAP] 300 mg PO Q8H 5 Days cap 01/05/20 Unknown Rx Prednisone [predniSONE 10 mg 10 mg PO .TAPER #1 tab.ds.pk 01/05/20 Unknown Rx (6-Day Pack, 21 Tabs)] ED Review of Systems ROS: Stated complaint: CARDIAC ARREST Other details as noted in HPI Comment: Unobtainable due to pts medical conditions Physical Exam - Physical Exam Physical Exam: GENERAL: Patient is ill-appearing and unresponsive. HENT: Normocephalic. Atraumatic. EYES: Pupils are fixed and dilated. NECK: Supple. Trachea appears midline. CHEST/LUNGS: There are no spontaneous respirations. HEART/CARDIOVASCULAR: There are no spontaneous heart sounds. ABDOMEN: Abdomen is soft. There is no abdominal distention. SKIN: Skin is cool but dry. NEURO: Unresponsive. Does not withdraw to painful stimuli. Does not follow any commands. MUSCULOSKELETAL: There is no obvious deformity. There is no evidence of acute injury. No palpable femoral or radial pulses. ED Medical Decision Making - Medical Decision Making The patient was intubated, was receiving chest compressions, and received 4 rounds of epinephrine and 1 of sodium bicarbonate prior to arrival in the emergency department. The patient was pulseless and in PEA during his entire EMS course. The patient arrived to our emergency department still pulseless and unresponsive. We continued chest compressions and bag valve ventilation through the endotracheal tube. There was a slight delay in giving any further ACLS medications as the intraosseous line was no longer patent. A peripheral IV was placed and the patient was given epinephrine. We did a further 3 rounds of ACLS protocol with 3 epinephrine and 1 of sodium bicarbonate. Each time the patient was in asystole. At this point the patient was pulseless and unresponsive for close to 1 hour. He has fixed and dilated pupils. There are no spontaneous heart or breath sounds. Time of was called at 9:04 PM. Critical Care Time: Yes Critical care time in (mins) excluding proc time.: 15 Critical care attestation.: If time is entered above; I have spent that time in minutes in the direct care of this critically ill patient, excluding procedure time. Critical care time was spent on the initial evaluation, supervision of ACLS protocol and discussion of expiration with the patient's family. Critical Care Time: 15 minutes ED Disposition Clinical Impression: Cardiac arrest Acute respiratory failure Qualifiers: Respiratory failure complication: unspecified whether with hypoxia or hypercapnia Qualified Code(s): J96.00 - Acute respiratory failure, unspecified whether with hypoxia or hypercapnia Disposition: DC-20 Is pt being admited?: No Time of Disposition: 22:42
== END 2020-05-06 21:10 ==
LOC: ED 20:59
DX: I46.9 Cardiac arrest, cause unspecified (principal); I10 Essential (primary) hypertension; F17.200 Nicotine dependence, unspecified, uncomplicated; J44.9 Chronic obstructive pulmonary disease, unspecified; Z79.899 Other long term (current) drug therapy
CPT/HCPCS: 82962; 92950; 99285; J0171; J0461